=== PATIENT | male | born 1960 | race Caucasian/White ===

== ENCOUNTER 2018-06-21 17:48 | Inpatient (IN) | payer OTHER ==
--- NOTE | 2018-06-21 18:49 | PDOC ---
Rapid Medical Evaluation Medical Evaluation: Allergies Allergy/AdvReac Type Severity Reaction Status Date / Time No Known Allergies Allergy Verified 11/09/17 07:00 I have performed a brief in-person evaluation of this patient. The patient presents with a chief complaint of: hx of DM, HTN c/o RLQ abd pain x 2 weeks; went to PCP and had WBC 16K, was sent to ER for CT abd/pelvis; denies n/v/d, dysuria, hematuria Pertinent physical exam findings: In NAD, appears well, minimal TTP RLQ, no CVA tenderness I have ordered the following: Labs, UA The patient will proceed to the ED for further evaluation. 06/21/18 18:44
[2018-06-21] MEDS ORDERED: ACETAMINOPHEN 325 MG TABLET (FP) ONE (18:52)
[2018-06-21] MEDS ORDERED: ACETAMINOPHEN 325 MG TABLET (FP) PO ONE (18:53)
[2018-06-21 19:12] LABS: URINE APPEARANCE CLEAR; URINE BILIRUBIN NEGATIVE (<2.0 mg/dL); URINE COLOR LTYELLOW; URINE GLUCOSE (UA) NEGATIVE (NEGATIVE); URINE KETONE NEGATIVE (NEGATIVE); URINE LEUK ESTERASE NEGATIVE (NEGATIVE); URINE NITRITE NEGATIVE (NEGATIVE); URINE PROTEIN NEGATIVE (NEGATIVE); URINE UROBILINOGEN NEGATIVE mg/dL (0.2-1.0)
--- NOTE | 2018-06-21 20:51 | PDOC ---
*Physical Exam - Vital Signs Last Vital Signs Temp Pulse Resp BP Pulse Ox 100.8 F H 113 H 22 H 132/92 96 06/21/18 18:53 06/21/18 18:53 06/21/18 18:53 06/21/18 18:53 06/21/18 18:53 ED Treatment Course - LABORATORY CBC & Chemistry Diagram: 06/21/18 21:00 06/21/18 21:00 - ADDITIONAL ORDERS Additional order review: Laboratory Results 06/21/18 19:00 Urine Color Ltyellow Urine Appearance Clear Urine pH 5.0 Ur Specific [place] 1.015 Urine Protein Negative Urine Glucose (UA) Negative Urine Ketones Negative Urine Blood Negative Urine Nitrite Negative Urine Bilirubin Negative Urine Urobilinogen Negative Ur Leukocyte Esterase Negative Medical Decision Making - Medical Decision Making 06/21/18 20:51 Patient seen by the advanced practice provider under my direct supervision. Ancillary testing reviewed as necessary. I agree with plan as outlined by the advanced practice provider. *DC/Admit/Observation/Transfer Diagnosis at time of Disposition: Abdominal pain - Referrals Referrals: Jo-Ann Cotto MD [Primary Care Provider] - - Patient Instructions - Post Discharge Activity
[2018-06-21] MEDS ORDERED: SODIUM CHLORIDE 500 ML IV STA (20:53)
[2018-06-21] MEDS ORDERED: ACETAMINOPHEN 1000 MG/100 ML VIAL (NON FORMULARY) IVPB ONE (20:53)
--- NOTE | 2018-06-21 20:53 | PDOC ---
History of Present Illness - General Chief Complaint: SIRS, Suspected/Possible Stated Complaint: SICK Time Seen by Provider: 06/21/18 18:44 History Source: Patient - History of Present Illness Initial Comments: 06/21/18 20:48 57 year old lower abdominal pain and frequency of urination x 2 weeks. noted to have fever today in the ER> denies NVD, uri symptoms, headache, chest pain sent by PCP dr. bruce for evaluation. PMHX: diabetes, htn 06/22/18 01:27 Past History - Past Medical History Allergies/Adverse Reactions: Allergies Allergy/AdvReac Type Severity Reaction Status Date / Time No Known Allergies Allergy Verified 06/21/18 18:53 Home Medications: Ambulatory Orders Dulaglutide [Trulicity] 1.5 mg SQ WEEKLY 11/09/17 Lisinopril/Hydrochlorothiazide [Lisinopril-Hctz 20-25 mg Tab] 1 each PO DAILY COPD: No HTN: Yes - Suicide/Smoking/Psychosocial Hx Smoking History: Never smoked Have you smoked in the past 12 months: No Hx Alcohol Use: No Drug/Substance Use Hx: No Substance Use Type: None Review of Systems - Review of Systems Able to Perform ROS?: Yes Is the patient limited British proficient: No Constitutional: Yes: Fever Respiratory: No: Symptoms reported, See HPI, Cough, Orthopnea, Shortness of Breath, SOB with Exertion, SOB at Rest, Stridor, Wheezing, Productive cough, Hemoptysis, Other Cardiac (ROS): No: Symptoms Reported, See HPI, Chest Pain, Edema, Irregular Heart Rate, Lightheadedness, Palpitations, Syncope, Chest Tightness, Other ABD/GI: Yes: Abdominal cramping. No: Symptoms Reported, See HPI, Abdominal Distended, Abd. Pain w/ defecation, Blood Streaked Bowels, Constipated, Diarrhea , Difficulty Swallowing, Nausea, Poor Appetite, Poor Fluid Intake, Rectal Bleeding, Vomiting, Indigestion, Tarry Stools, Other : Yes: Frequency. No: Symptoms Reported, See HPI, Burning, Dysuria, Discharge , Flank Pain, Hematuria, Incontinence, Pain, Urgency, Testicular Mass, Testicular Swelling, Lesions, Testicular Pain, Other *Physical Exam - Vital Signs Last Vital Signs Temp Pulse Resp BP Pulse Ox 100.8 F H 113 H 22 H 132/92 96 06/21/18 18:53 06/21/18 18:53 06/21/18 18:53 06/21/18 18:53 06/21/18 18:53 - Physical Exam General Appearance: Yes: Appropriately Dressed Respiratory/Chest: positive: Lungs Clear, Normal Breath Sounds Cardiovascular: positive: Regular Rhythm, Regular Rate Gastrointestinal/Abdominal: positive: Normal Bowel Sounds, Tender (RLQ), Soft, Distended Musculoskeletal: positive: Normal Inspection Extremity: positive: Normal Capillary Refill, Normal Inspection, Normal Range of Motion Integumentary: positive: Normal Color, Dry, Warm Neurologic: positive: Fully Oriented, Alert Moderate Sedation - Procedure Monitoring Vital Signs: Procedure Monitoring Vital Signs Temperature 100.8 F H 06/21/18 18:53 Pulse Rate 113 H 06/21/18 18:53 Respiratory Rate 22 H 06/21/18 18:53 Blood Pressure 132/92 06/21/18 18:53 O2 Sat by Pulse Oximetry (%) 96 06/21/18 18:53 ED Treatment Course - LABORATORY CBC & Chemistry Diagram: 06/27/18 06:15 06/27/18 06:15 - ADDITIONAL ORDERS Additional order review: Laboratory Results 06/21/18 19:00 Urine Color Ltyellow Urine Appearance Clear Urine pH 5.0 Ur Specific [place] 1.015 Urine Protein Negative Urine Glucose (UA) Negative Urine Ketones Negative Urine Blood Negative Urine Nitrite Negative Urine Bilirubin Negative Urine Urobilinogen Negative Ur Leukocyte Esterase Negative Progress Note - Progress Note Progress Note: A: perforated appendicitis P: blood culture cbc cmp lactic acid ua IVF zosyn flagyl Surgery consult Medical Decision Making - Medical Decision Making 06/22/18 01:26 CTAP: Stomach:: Small sliding hiatal hernia. Bowel:: Marked inflammatory changes in the right lower quadrant without visualization of the appendix compatible with perforated appendicitis with associated moderate-sized pericolonic/periappendiceal fluid collection/abscess measuring approximately 9.2 x 2.4 cm. No evidence of small bowel obstruction or mass. Small fat-containing right inguinal hernia. 06/22/18 1:38 dr. mahsa rivero i spoke to Dr. bragg will see patient inpatient . need IR. patient admitted to the hospitalist service *DC/Admit/Observation/Transfer Diagnosis at time of Disposition: Perforated appendicitis Abdominal pain Qualifiers: Abdominal location: right lower quadrant Qualified Code(s): R10.31 - Right lower quadrant pain - Discharge Dispostion Decision to Admit order: Yes - Referrals - Patient Instructions - Post Discharge Activity
[2018-06-21] MEDS ORDERED: ACETAMINOPHEN INJECTION 100 ML IVPB ONE (21:01)
[2018-06-21 21:24] LABS: BASO % 0.8 % (0-2.0); EOS % 0.6 % (0-4.5); HEMATOCRIT 43.5 % (35.4-49); HEMOGLOBIN 14.9 GM/dL (11.7-16.9); LYMPH % 15.4 % (8-40); MCH 28.3 pg (25.7-33.7); MCHC 34.2 g/dl (32.0-35.9); MEAN CELL VOLUME 82.6 fl (80-96); MEAN PLT VOLUME 8.9 fl (7.5-11.1); MONO % 6.2 % (3.8-10.2); PLATELET COUNT 345 K/MM3 (134-434); RBC 5.26 M/mm3 (4.00-5.60); RDW 13.9 % (11.9-15.9); WHITE BLOOD COUNT 20.4 K/mm3 (4.0-10.0)
[2018-06-21 21:36] LABS: INR 1.13 (0.83-1.09); PROTHROMBIN TIME (PATIENT) 13.3 SEC (9.7-13.0)
[2018-06-21 21:45] LABS: ALBUMIN 3.5 g/dl (3.4-5.0); ALK PHOS 135 U/L (45-117); ANION GAP 7 MMOL/L (8-16); BILIRUBIN,TOTAL 0.6 mg/dL (0.2-1); BLOOD UREA NITROGEN 17 mg/dL (7-18); CALCIUM 8.9 mg/dL (8.5-10.1); CHLORIDE 101 mmol/L (98-107); CO2 28 mmol/L (21-32); CREATININE 0.9 mg/dL (0.55-1.3); GLUCOSE,RANDOM 119 mg/dL (74-106); POTASSIUM 3.7 mmol/L (3.5-5.1); SGOT/AST 16 U/L (15-37); SGPT/ALT 29 U/L (13-61); SODIUM 136 mmol/L (136-145); TOT PROT 7.8 g/dl (6.4-8.2)
[2018-06-21 21:54] LABS: PLATELET ESTIMATE ADEQUATE
[2018-06-22] MEDS ORDERED: PIPERACILLIN/TAZOB 4.5 GM 4.5 GM in DEXTROSE 5%-WATER 100 ML IVPB ONE (01:25)
[2018-06-22] MEDS ORDERED: SODIUM CHLORIDE 1,000 ML IV SCH (01:30)
[2018-06-22] MEDS ORDERED: PIPERACILLIN/TAZOB 4.5 GM 4.5 GM/100 ML BAG IVPB ONE (03:40)
--- NOTE | 2018-06-22 04:03 | HP ---
CHIEF COMPLAINT: Abdominal pain PCP: Dr. Cotto HISTORY OF PRESENT ILLNESS: Pt. is a 57 y.o. M presenting to the ED at the request of his PCP for abdominal pain. Pt. states that he has lower abdominal pain R>L for about 2 weeks intermittently. Pt. states that right now the pain doesn't feel so bad. Pt. denies any nausea, vomiting, fevers, chills, diarrhea, constipation, chest pain, shortness of breath, palpitations, lightheadedness, or dizziness right now. After discussion of CT results Pt. asking about second opinion. Pt. states that he rides his bike for 1 hour on the weekends and states he can climb 4 flights of stairs without feeling sort of breath. ER course was notable for: (1)CBC, CMP (2)Abdomen CT, EKG (3)Abx: zosyn , flagyl; IV Ofirmev Recent Travel: denies PAST MEDICAL HISTORY: HTN, DM PAST SURGICAL HISTORY: Denies Social History: Smoking: Denies Alcohol: Alot in the past but quit 10 years ago Drugs: Denies Family History: Mother has HTN Allergies No Known Allergies Allergy (Verified 06/21/18 18:53) HOME MEDICATIONS: Home Medications Medication Instructions Recorded Dulaglutide [Trulicity] 1.5 mg SQ WEEKLY 11/09/17 Lisinopril/Hydrochlorothiazide 1 each PO DAILY 06/21/18 [Lisinopril-Hctz 20-25 mg Tab] REVIEW OF SYSTEMS CONSTITUTIONAL: Absent: fever, chills, diaphoresis, generalized weakness, malaise, loss of appetite, weight change HEENT: Absent: rhinorrhea, nasal congestion, throat pain, throat swelling, difficulty swallowing, mouth swelling, ear pain, eye pain, visual changes CARDIOVASCULAR: Absent: chest pain, syncope, palpitations, irregular heart rate, lightheadedness , peripheral edema RESPIRATORY: Absent: cough, shortness of breath, dyspnea with exertion, orthopnea, wheezing, stridor, hemoptysis GASTROINTESTINAL:abdominal pain Absent: abdominal distension, nausea, vomiting, diarrhea, constipation, melena, hematochezia GENITOURINARY: Absent: dysuria, frequency, urgency, hesitancy, hematuria, flank pain, genital pain MUSCULOSKELETAL: Absent: myalgia, arthralgia, joint swelling, back pain, neck pain SKIN: Absent: rash, itching, pallor HEMATOLOGIC/IMMUNOLOGIC: Absent: easy bleeding, easy bruising, lymphadenopathy, frequent infections ENDOCRINE: Absent: unexplained weight gain, unexplained weight loss, heat intolerance, cold intolerance NEUROLOGIC: Absent: headache, focal weakness or paresthesias, dizziness, unsteady gait, seizure, mental status changes, bladder or bowel incontinence PSYCHIATRIC: Absent: anxiety, depression, suicidal or homicidal ideation, hallucinations. PHYSICAL EXAMINATION Vital Signs - 24 hr 06/21/18 18:53 Temperature 100.8 F H Pulse Rate 113 H Respiratory 22 H Rate Blood Pressure 132/92 O2 Sat by Pulse 96 Oximetry (%) GENERAL: AAox3 in Mild distress HEAD: NC/AT EYES: KRISTINE, EOMI , ENT: Moist mucous membranes. NECK: supple LUNGS: CTA B/L No wheezes, and no crackles. No accessory muscle use. HEART:RRR, No MRG ABDOMEN: Obese, soft , diffuse tenderness , RLQ tenderness , rebound tenderness MUSCULOSKELETAL: Normal range of motion at all joints. No bony deformities or tenderness. No CVA tenderness. UPPER EXTREMITIES: 2+ pulses, warm, well-perfused. No cyanosis. No clubbing. No peripheral edema. LOWER EXTREMITIES: 2+ pulses, warm, well-perfused. No calf tenderness. No peripheral edema. NEUROLOGICAL: Cranial nerves II-XII intact. Normal speech. PSYCHIATRIC: Cooperative. Laboratory Results - last 24 hr 06/21/18 06/21/18 06/21/18 19:00 21:00 21:00 WBC 20.4 H RBC 5.26 Hgb 14.9 Hct 43.5 MCV 82.6 MCH 28.3 MCHC 34.2 RDW 13.9 Plt Count 345 MPV 8.9 Absolute Neuts (auto) 15.7 H Neutrophils % 77.0 Neutrophils % (Manual) 67.0 Band Neutrophils % 8.0 Lymphocytes % 15.4 Lymphocytes % (Manual) 18.0 Monocytes % 6.2 Monocytes % (Manual) 2 L Eosinophils % 0.6 Eosinophils % (Manual) 1.0 Basophils % 0.8 Basophils % (Manual) 0.0 Nucleated RBC % 0 Platelet Estimate Adequate PT with INR INR PTT (Actin FS) Sodium 136 Potassium 3.7 Chloride 101 Carbon Dioxide 28 Anion Gap 7 L BUN 17 Creatinine 0.9 Creat Clearance w eGFR 86.98 Random Glucose 119 H Lactic Acid Calcium 8.9 Total Bilirubin 0.6 AST 16 ALT 29 Alkaline Phosphatase 135 H Total Protein 7.8 Albumin 3.5 Urine Color Ltyellow Urine Appearance Clear Urine pH 5.0 Ur Specific [place] 1.015 Urine Protein Negative Urine Glucose (UA) Negative Urine Ketones Negative Urine Blood Negative Urine Nitrite Negative Urine Bilirubin Negative Urine Urobilinogen Negative Ur Leukocyte Esterase Negative 06/21/18 06/21/18 21:00 21:00 WBC RBC Hgb Hct MCV MCH MCHC RDW Plt Count MPV Absolute Neuts (auto) Neutrophils % Neutrophils % (Manual) Band Neutrophils % Lymphocytes % Lymphocytes % (Manual) Monocytes % Monocytes % (Manual) Eosinophils % Eosinophils % (Manual) Basophils % Basophils % (Manual) Nucleated RBC % Platelet Estimate PT with INR 13.30 H INR 1.13 H PTT (Actin FS) 38.0 H Sodium Potassium Chloride Carbon Dioxide Anion Gap BUN Creatinine Creat Clearance w eGFR Random Glucose Lactic Acid 1.3 Calcium Total Bilirubin AST ALT Alkaline Phosphatase Total Protein Albumin Urine Color Urine Appearance Urine pH Ur Specific [place] Urine Protein Urine Glucose (UA) Urine Ketones Urine Blood Urine Nitrite Urine Bilirubin Urine Urobilinogen Ur Leukocyte Esterase CBC, BMP 06/21/18 21:00 06/21/18 21:00 06/22/18 CTAP: Stomach:: Small sliding hiatal hernia. Bowel:: Marked inflammatory changes in the right lower quadrant without visualization of the appendix compatible with perforated appendicitis with associated moderate-sized pericolonic/periappendiceal fluid collection/abscess measuring approximately 9.2 x 2.4 cm. No evidence of small bowel obstruction or mass. Small fat-containing right inguinal hernia. ASSESSMENT/PLAN: 57 year old amle with mhx of HTN , DM , presented with sever abdominal pain was found to have perforated appendicitis admitted for M/S for further evaluation and treatment. # Sepsis 2/2 Perforated appendicitis WBC 20, Temp 100.8 , RR:22 , source of infection, HR 113 NPO OR in AM Surgery consulted Dr Thrasher Type and screen, INR IVF Received IV Tylenol in ED to good effect C/w Flagyl and Zosyn EKG CXR no acute pathology CT abdomen/pelvic reviewed Tylenol for fever Zofran for nausea f/u BCx. and UCx. # HTN stable, resume home meds losartan/HCTZ #NIDDM hold oral agents BGM TIDAC ISS TIDAC # FEN NS @ 125 ml/hr Monitor electrolytes, replete as needed NPO #DVT Ppx. SCDs Only for now Lovenox 40mg SQ BID Post OP # Dispo Med surg # Full code Visit type - Emergency Visit Emergency Visit: Yes ED Registration Date: 06/22/18 Care time: The patient presented to the Emergency Department on the above date and was hospitalized for further evaluation of their emergent condition. - New Patient This patient is new to me today: Yes Date on this admission: 06/22/18 - Critical Care Critical Care patient: No
--- NOTE | 2018-06-22 04:07 | PN ---
Teaching Attending Note Name of Resident: Doc Carroll ATTENDING PHYSICIAN STATEMENT I saw and evaluated the patient. I reviewed the resident's note and discussed the case with the resident. I agree with the resident's findings and plan as documented. SUBJECTIVE: Patient is a 57 year old man with PMH of NIDDM, HTN, hyperlipidemia and morbid obesity presenting with right lower abdominal pain and frequency of urination for 2 weeks. Noted to have fever today in the ER. Denies nausea, vomiting, diarrhea, URI symptoms, headache, chest pain, hematuria or photophobia. Patient was sent by PCP Dr. Cotto for evaluation. OBJECTIVE: Alert Vital Signs Period Temp Pulse Resp BP Sys/Collazo Pulse Ox Last 24 Hr 100.8 F 113 22 132/92 96 HEENT: No Jaundice, eye redness or discharge, PERRLA, EOMI. Normocephalic, atraumatic. External ears are normal and hearing is grossly intact. No nasal discharge. Neck: Supple, nontender. No palpable adenopathy or thyromegaly. No JVD Chest: Good effort. Clear to auscultation and percussion. Heart: Regular. No S3, rub or murmur Abdomen: Not distended, soft, RLQ tenderness and no HSM. No rebound or guarding. Normal bowel sounds. Ext: Peripheral pulses intact. No leg edema. Skin: Warm and dry. No petechiae, rash or ecchymosis. Neuro: Alert. Oriented x3. CN 2-12 grossly intact. Sensation grossly intact in all four extremities and DTR are symmetric. Psych: Appropriate mood and affect. Good insight. Current Medications Generic Name Dose Route Start Last Admin Trade Name Feng PRN Reason Stop Dose Admin Sodium Chloride 1,000 mls @ 125 mls/hr 06/22/18 01:30 Normal Saline - IV [facility] Home Medications Medication Instructions Recorded Dulaglutide [Trulicity] 1.5 mg SQ WEEKLY 11/09/17 Lisinopril/Hydrochlorothiazide 1 each PO DAILY 06/21/18 [Lisinopril-Hctz 20-25 mg Tab] Abnormal Lab Results 06/21/18 06/21/18 06/21/18 21:00 21:00 21:00 WBC 20.4 H Absolute Neuts (auto) 15.7 H Monocytes % (Manual) 2 L PT with INR 13.30 H INR 1.13 H PTT (Actin FS) 38.0 H Anion Gap 7 L Random Glucose 119 H Alkaline Phosphatase 135 H ASSESSMENT AND PLAN: 1. Perforated appendix with abscess - CT abdomen/pelvis showed small sliding hiatal hernia in stomach; marked inflammatory changes in the right lower quadrant without visualization of the appendix compatible with perforated appendicitis with associated moderate-sized pericolonic/periappendiceal fluid collection/abscess measuring approximately 9.2 x 2.4 cm. No evidence of small bowel obstruction or mass. Small fat-containing right inguinal hernia. Surgery consulted - Dr. Thrasher. Patient being kept NPO, getting IV Zosyn and IV NS at 50 ml/hour. EKG shows NSR with no significant ST-T wave changes and CXR shows cardiomegaly with no acute infiltrate. 2. DM For now, we will hold the home diabetes drugs and implement sliding scale insulin regimen. Provide comprehensive diabetes care with patient teaching and counseling about the importance of adherence to prescribed diabetes regimen, euglycemia, eye care and foot care. 3. Morbid Obesity Counseled on the risks associated with obesity. Will provide patient all the necessary assistance, counseling and positive reinforcement to facilitate weight loss. Consult special weapons and tactics officer. 4. Hypertension - Restart outpatient antihypertensive drugs and revise regimen to ensure smooth [id number] good BP control. Nonpharmacologic measures to control hypertension like weight loss, salt restriction and exercise discussed. 5. DVT prophylaxis - Lovenox 40 mg SQ q 12 hours post op. SCDs, TEDs 6. Advance directives - Full code
[2018-06-22] MEDS ORDERED: ACETAMINOPHEN 1000 MG/100 ML VIAL (NON FORMULARY) IVPB PRN (06:22)
[2018-06-22] MEDS ORDERED: INSULIN SLIDING SCALE (NOVOLOG) 1 VIAL SQ SCH (07:00)
--- NOTE | 2018-06-22 07:14 | CONSULT ---
Consult Consult Specialty:: General Surgery Reason for Consultation:: ruptured appendicitis - History of Present Illness Chief Complaint: abdominal pain 2 weeks History of Present Illness: 57 yo male no significant PMH presenting to the ED at the request of his PCP for abdominal pain. Pt. states that he has lower abdominal pain R>L for about 2 weeks intermittently. Pt. states that right now the pain doesn't feel so bad. Pt. denies any nausea, vomiting, fevers, chills, diarrhea, constipation, chest pain, shortness of breath, palpitations, lightheadedness, or dizziness right now. After discussion of CT results Pt. asking about second opinion. Pt. states that he rides his bike for 1 hour on the weekends and states he can climb 4 flights of stairs without feeling sort of breath. we were called to assess. - History Source History Provided By: Patient, Medical Record Limitations to Obtaining History: No Limitations - Past Medical History Additional Medical History: obesity - Alcohol/Substance Use Hx Alcohol Use: No - Smoking History Smoking history: Never smoked Have you smoked in the past 12 months: No Home Medications - Allergies Allergies/Adverse Reactions: Allergies Allergy/AdvReac Type Severity Reaction Status Date / Time No Known Allergies Allergy Verified 06/21/18 18:53 - Home Medications Home Medications: Ambulatory Orders Dulaglutide [Trulicity] 1.5 mg SQ WEEKLY 11/09/17 Lisinopril/Hydrochlorothiazide [Lisinopril-Hctz 20-25 mg Tab] 1 each PO DAILY Review of Systems - Review of Systems Constitutional: denies: Chills, Fever Eyes: denies: Blind Spots, Recent Change in Vision HENT: denies: Difficult Swallowing, Ocular Prosthesis, Other Neck: denies: Decreased ROM, Lumps Cardiovascular: denies: Chest Pain, Palpitations Respiratory: denies: Cough, SOB Gastrointestinal: denies: Constipation, Diarrhea Genitourinary: denies: Discharge, Dysuria Musculoskeletal: denies: Muscle Pain, Muscle Weakness Integumentary: denies: Pallor, Rash Neurological: denies: Seizure, Syncope Endocrine: denies: Unexplained Weight Gain, Unexplained Weight Loss Hematology/Lymphatic: denies: Easily Bruised, Excessive Bleeding Psychiatric: denies: Anxiety, Depression Physical Exam Vital Signs: Vital Signs Temperature 98.1 F 06/22/18 05:34 Pulse Rate 91 H 06/22/18 05:34 Respiratory Rate 18 06/22/18 05:34 Blood Pressure 148/71 06/22/18 05:34 O2 Sat by Pulse Oximetry (%) 97 06/22/18 05:34 Constitutional: Yes: Well Nourished, No Distress, Calm, Obese Eyes: Yes: Conjunctiva Clear, EOM Intact HENT: Yes: Atraumatic, Normocephalic Neck: Yes: Supple, Trachea Midline Cardiovascular: Yes: Regular Rate and Rhythm, S1, S2 Respiratory: Yes: Regular, CTA Bilaterally. No: SOB Gastrointestinal: Yes: Normal Bowel Sounds, Soft, Abdomen, Obese, Tenderness ( deep palp of RLQ). No: Hepatomegaly, Hernia, Palpable Mass, Tenderness, Epigastrium, Tenderness, Rebound ...Rectal Exam: Yes: Sphincter Tone Normal. No: Mass Renal/: No: CVA Tenderness - Left, CVA Tenderness - Right Breast(s): Yes: Gynecomastia Musculoskeletal: No: Muscle Pain, Muscle Weakness Extremities: No: Cool, Cyanosis Edema: No Peripheral Pulses WNL: Yes Integumentary: No: Incision, Jaundice Neurological: Yes: Alert, Oriented Psychiatric: Yes: Alert, Oriented Labs: CBC, BMP 06/21/18 21:00 06/21/18 21:00 Imaging - Results Cat Scan: Report Reviewed, Image Reviewed (ruptured appendx withadjacent abscess ) Problem List - Problems (1) Perforated appendicitis Assessment/Plan: 57yo male with ruptured appendicitis 2 weeks ago. IR for Abscess Drainage was discussed with Dr. Da Silva and the abscess is intramural and may result in a fistula. Thus he should be managed with IV antibiotics alone as long as improving. No acute surgical intervention. NPO and IVF hydration IV antibiotics repeat labs, trend CBC adequate analgesia will follow peripherally Thank you for the opportunity to participate in the care of this patient. Code(s): K35.32 - ACUTE APPENDICITIS WITH PERF AND LOC PERITONITIS, W/O ABSCS (2) Abdominal pain in male Code(s): R10.9 - UNSPECIFIED ABDOMINAL PAIN (3) Obesity (BMI 35.0-39.9 without comorbidity) Code(s): E66.9 - OBESITY, UNSPECIFIED (4) Leukocytosis Code(s): D72.829 - ELEVATED WHITE BLOOD CELL COUNT, UNSPECIFIED Qualifiers: Leukocytosis type: bandemia Qualified Code(s): D72.825 - Bandemia
[2018-06-22 07:40] LABS: BASO % 0.6 % (0-2.0); EOS % 0.9 % (0-4.5); HEMATOCRIT 38.9 % (35.4-49); HEMOGLOBIN 13.3 GM/dL (11.7-16.9); LYMPH % 18.1 % (8-40); MCH 28.3 pg (25.7-33.7); MCHC 34.3 g/dl (32.0-35.9); MEAN CELL VOLUME 82.6 fl (80-96); MEAN PLT VOLUME 8.6 fl (7.5-11.1); MONO % 6.4 % (3.8-10.2); PLATELET COUNT 294 K/MM3 (134-434); RDW 13.8 % (11.9-15.9); WHITE BLOOD COUNT 13.7 K/mm3 (4.0-10.0)
[2018-06-22 08:09] LABS: INR 1.15 (0.83-1.09); PROTHROMBIN TIME (PATIENT) 13.6 SEC (9.7-13.0)
[2018-06-22 08:12] LABS: ALBUMIN 3.2 g/dl (3.4-5.0); ALK PHOS 118 U/L (45-117); ANION GAP 7 MMOL/L (8-16); BILIRUBIN,TOTAL 0.9 mg/dL (0.2-1); BLOOD UREA NITROGEN 15 mg/dL (7-18); CALCIUM 8.6 mg/dL (8.5-10.1); CHLORIDE 102 mmol/L (98-107); CO2 28 mmol/L (21-32); GLUCOSE,RANDOM 125 mg/dL (74-106); MAGNESIUM 2.1 mg/dL (1.8-2.4); PHOSPHOROUS 3.6 mg/dL (2.5-4.9); POTASSIUM 3.7 mmol/L (3.5-5.1); SGOT/AST 14 U/L (15-37); SGPT/ALT 24 U/L (13-61); SODIUM 137 mmol/L (136-145)
[2018-06-22] MEDS: SODIUM CHLORIDE 1,000 ML IV SCH (08:58)
--- NOTE | 2018-06-22 11:57 | EKG ---
Test Reason : Blood Pressure : / mmHG Vent. Rate : 086 BPM Atrial Rate : 086 BPM P-R Int : 176 ms QRS Dur : 102 ms QT Int : 360 ms P-R-T Axes : 052 051 042 degrees QTc Int : 430 ms NORMAL SINUS RHYTHM NONSPECIFIC T WAVE ABNORMALITY ABNORMAL ECG NO PREVIOUS ECGS AVAILABLE Confirmed by YAMILET HERMAN, BRANDON ([id number]) on 06/22/2018 11:56:56 AM Referred By: Confirmed By:BRANDON WOODARD MD
--- NOTE | 2018-06-22 16:34 | PN ---
Physical Exam: SUBJECTIVE: Patient seen and examined OBJECTIVE: Vital Signs Period Temp Pulse Resp BP Sys/Collazo Pulse Ox Last 24 Hr 98.1 F-100.8 F 64-113 18-22 128-148/60-92 96-97 GENERAL: The patient is awake, alert, and fully oriented, in no acute distress. HEAD: Normal with no signs of trauma. EYES: PERRL, extraocular movements intact, sclera anicteric, conjunctiva clear. No ptosis. ENT: Ears normal, nares patent, oropharynx clear without exudates, moist mucous membranes. NECK: Trachea midline, full range of motion, supple. LUNGS: Breath sounds equal, clear to auscultation bilaterally, no wheezes, no crackles, no accessory muscle use. HEART: Regular rate and rhythm, S1, S2 without murmur, rub or gallop. ABDOMEN: Soft, nontender, nondistended, normoactive bowel sounds, no guarding, no rebound, no hepatosplenomegaly, no masses. EXTREMITIES: 2+ pulses, warm, well-perfused, no edema. NEUROLOGICAL: Cranial nerves II through XII grossly intact. Normal speech, gait not observed. PSYCH: Normal mood, normal affect. SKIN: Warm, dry, normal turgor, no rashes or lesions noted Laboratory Results - last 24 hr 06/21/18 06/21/18 06/21/18 19:00 21:00 21:00 WBC 20.4 H RBC 5.26 Hgb 14.9 Hct 43.5 MCV 82.6 MCH 28.3 MCHC 34.2 RDW 13.9 Plt Count 345 MPV 8.9 Absolute Neuts (auto) 15.7 H Neutrophils % 77.0 Neutrophils % (Manual) 67.0 Band Neutrophils % 8.0 Lymphocytes % 15.4 Lymphocytes % (Manual) 18.0 Monocytes % 6.2 Monocytes % (Manual) 2 L Eosinophils % 0.6 Eosinophils % (Manual) 1.0 Basophils % 0.8 Basophils % (Manual) 0.0 Nucleated RBC % 0 Platelet Estimate Adequate PT with INR INR PTT (Actin FS) Sodium 136 Potassium 3.7 Chloride 101 Carbon Dioxide 28 Anion Gap 7 L BUN 17 Creatinine 0.9 Creat Clearance w eGFR 86.98 Random Glucose 119 H Lactic Acid Calcium 8.9 Phosphorus Magnesium Total Bilirubin 0.6 AST 16 ALT 29 Alkaline Phosphatase 135 H Total Protein 7.8 Albumin 3.5 Urine Color Ltyellow Urine Appearance Clear Urine pH 5.0 Ur Specific [place] 1.015 Urine Protein Negative Urine Glucose (UA) Negative Urine Ketones Negative Urine Blood Negative Urine Nitrite Negative Urine Bilirubin Negative Urine Urobilinogen Negative Ur Leukocyte Esterase Negative Blood Type Antibody Screen 06/21/18 06/21/18 06/22/18 21:00 21:00 07:15 WBC 13.7 H RBC 4.70 Hgb 13.3 Hct 38.9 MCV 82.6 MCH 28.3 MCHC 34.3 RDW 13.8 Plt Count 294 MPV 8.6 Absolute Neuts (auto) 10.2 H Neutrophils % 74.0 Neutrophils % (Manual) Band Neutrophils % Lymphocytes % 18.1 Lymphocytes % (Manual) Monocytes % 6.4 Monocytes % (Manual) Eosinophils % 0.9 Eosinophils % (Manual) Basophils % 0.6 Basophils % (Manual) Nucleated RBC % 0 Platelet Estimate PT with INR 13.30 H INR 1.13 H PTT (Actin FS) 38.0 H Sodium Potassium Chloride Carbon Dioxide Anion Gap BUN Creatinine Creat Clearance w eGFR Random Glucose Lactic Acid 1.3 Calcium Phosphorus Magnesium Total Bilirubin AST ALT Alkaline Phosphatase Total Protein Albumin Urine Color Urine Appearance Urine pH Ur Specific [place] Urine Protein Urine Glucose (UA) Urine Ketones Urine Blood Urine Nitrite Urine Bilirubin Urine Urobilinogen Ur Leukocyte Esterase Blood Type Antibody Screen 06/22/18 06/22/18 06/22/18 07:15 07:15 07:15 WBC RBC Hgb Hct MCV MCH MCHC RDW Plt Count MPV Absolute Neuts (auto) Neutrophils % Neutrophils % (Manual) Band Neutrophils % Lymphocytes % Lymphocytes % (Manual) Monocytes % Monocytes % (Manual) Eosinophils % Eosinophils % (Manual) Basophils % Basophils % (Manual) Nucleated RBC % Platelet Estimate PT with INR 13.60 H INR 1.15 H PTT (Actin FS) Sodium 137 Potassium 3.7 Chloride 102 Carbon Dioxide 28 Anion Gap 7 L BUN 15 Creatinine 1.0 Creat Clearance w eGFR 77.02 Random Glucose 125 H Lactic Acid Calcium 8.6 Phosphorus 3.6 Magnesium 2.1 Total Bilirubin 0.9 AST 14 L ALT 24 Alkaline Phosphatase 118 H Total Protein 7.0 Albumin 3.2 L Urine Color Urine Appearance Urine pH Ur Specific [place] Urine Protein Urine Glucose (UA) Urine Ketones Urine Blood Urine Nitrite Urine Bilirubin Urine Urobilinogen Ur Leukocyte Esterase Blood Type O POSITIVE Antibody Screen Negative 06/22/18 10:11 WBC RBC Hgb Hct MCV MCH MCHC RDW Plt Count MPV Absolute Neuts (auto) Neutrophils % Neutrophils % (Manual) Band Neutrophils % Lymphocytes % Lymphocytes % (Manual) Monocytes % Monocytes % (Manual) Eosinophils % Eosinophils % (Manual) Basophils % Basophils % (Manual) Nucleated RBC % Platelet Estimate PT with INR INR PTT (Actin FS) Sodium Potassium Chloride Carbon Dioxide Anion Gap BUN Creatinine Creat Clearance w eGFR Random Glucose Lactic Acid Calcium Phosphorus Magnesium Total Bilirubin AST ALT Alkaline Phosphatase Total Protein Albumin Urine Color Urine Appearance Urine pH Ur Specific [place] Urine Protein Urine Glucose (UA) Urine Ketones Urine Blood Urine Nitrite Urine Bilirubin Urine Urobilinogen Ur Leukocyte Esterase Blood Type O POSITIVE Antibody Screen Active Medications Generic Name Dose Route Start Last Admin Trade Name Freq PRN Reason Stop Dose Admin Acetaminophen 1,000 mg 06/22/18 06:22 Ofirmev Injection - IVPB Q6H PRN PAIN OR FEVER Sodium Chloride 1,000 mls @ 75 mls/hr 06/22/18 05:11 06/22/18 08:58 Normal Saline - IV 75 mls/hr ASDIR SHIMA Administration Levofloxacin 500 mg in 100 mls @ 100 mls/hr 06/23/18 10:00 Levaquin 500 Mg Premixed Ivpb - IVPB DAILY SHIMA Protocol Metronidazole 500 mg in 100 mls @ 100 mls/hr 06/22/18 09:00 06/22/18 16:02 Flagyl 500mg Premixed Ivpb - IVPB 100 mls/hr Q6H-IV SHIMA Administration CT Abdomen: There is extensive inflammation within the right lower quadrant. The appendix is not definitely identified but appears to be involved in this process. There is an associated air and fluid collection measuring 5.8 x 5.7 x 5.7 cm. It is difficult to separate the collection from the base of the cecum, as well as the terminal ileum. There is a smaller fluid collection noted within the midline measuring 3.7 x 1.7 x 2.1 cm. This is also consistent with a small abscess. Inflammatory changes involve the sigmoid colon, as well as. The most likely etiology of this process is acute appendicitis with perforation. Clinical correlation and follow-up is now recommended. ASSESSMENT/PLAN: This is a 57 year old obese male with a history of HTN, NIDDM, who presented with two weeks of abdominal pain; found to have perforated appendicitis with abscess. #appendicitis with perforation and abscess: -seen by surgery need IV antibiotic for five days -on IV metronidazole day 1 and levaquin -plan for removal in two monther as per surgery -seen by IR; not a candidate for drain #NIDDM -bgm -insulin ss achs #HTN hx; -currently stable not on antihypertensive Diet; low sodium/diabetic VTE; heparin sq Disposition: IV antibiotics med surg Visit type - Emergency Visit Emergency Visit: Yes ED Registration Date: 06/22/18 Care time: The patient presented to the Emergency Department on the above date and was hospitalized for further evaluation of their emergent condition. - New Patient This patient is new to me today: Yes Date on this admission: 06/22/18 - Critical Care Critical Care patient: No
--- NOTE | 2018-06-22 17:18 | PN ---
Teaching Attending Note Name of Resident: Anne Marie Munoz ATTENDING PHYSICIAN STATEMENT I saw and evaluated the patient. I reviewed the resident's note and discussed the case with the resident. I agree with the resident's findings and plan as documented. SUBJECTIVE: Mr Matias says he is feeling much better. Says he is not having pain. Denies cp, sob, n/v. OBJECTIVE: Last Vital Signs Temp Pulse Resp BP Pulse Ox 37.1 C 64 20 143/60 97 06/22/18 15:52 06/22/18 15:52 06/22/18 09:00 06/22/18 15:52 06/22/18 05:34 Gen: nad Pulm: ctab w/o w/r/r CV: rrr w/o m/r/g Abd: hypoactive bs, s/nd, slight TTP in RLQ Ext: no c/c/e CBC, BMP 06/22/18 07:15 06/22/18 07:15 ASSESSMENT AND PLAN: Problem List - Problems (1) Perforated appendicitis Assessment/Plan: -case d/w general surgery and IR -no need for surgical intervention or drainage -improving with IV antibiotics alone -continue IV levaquin and flagyl, will need 5 days of IV antibiotics -start on diet Code(s): K35.32 - ACUTE APPENDICITIS WITH PERF AND LOC PERITONITIS, W/O ABSCS (2) HTN (hypertension) Assessment/Plan: -monitor -restart lisinopril and HCTZ when elevates Code(s): I10 - ESSENTIAL (PRIMARY) HYPERTENSION (3) Diabetes Assessment/Plan: -diabetic diet and SSI Code(s): E11.9 - TYPE 2 DIABETES MELLITUS WITHOUT COMPLICATIONS
[2018-06-22] MEDS ORDERED: INSULIN (NOVOLOG) ASPART 100 UNITS/ML 10ML VIAL ONE (21:31)
[2018-06-22] MEDS: INSULIN SLIDING SCALE (NOVOLOG) 1 VIAL SQ SCH (22:58)
[2018-06-23] MEDS: INSULIN SLIDING SCALE (NOVOLOG) 1 VIAL SQ SCH ×4 (06:45→21:07)
[2018-06-23] MEDS: SODIUM CHLORIDE 1,000 ML IV SCH (06:46)
[2018-06-23 08:53] LABS: BASO % 0.5 % (0-2.0); EOS % 1.9 % (0-4.5); HEMATOCRIT 39.8 % (35.4-49); HEMOGLOBIN 13.3 GM/dL (11.7-16.9); LYMPH % 19.3 % (8-40); MCH 27.9 pg (25.7-33.7); MCHC 33.5 g/dl (32.0-35.9); MEAN CELL VOLUME 83.5 fl (80-96); MEAN PLT VOLUME 8.8 fl (7.5-11.1); MONO % 6.7 % (3.8-10.2); NEUT % 71.6 % (42.8-82.8); PLATELET COUNT 291 K/MM3 (134-434); RBC 4.77 M/mm3 (4.00-5.60); WHITE BLOOD COUNT 11.7 K/mm3 (4.0-10.0)
[2018-06-23 09:19] LABS: ANION GAP 7 MMOL/L (8-16); BLOOD UREA NITROGEN 16 mg/dL (7-18); CALCIUM 8.5 mg/dL (8.5-10.1); CHLORIDE 107 mmol/L (98-107); CO2 26 mmol/L (21-32); CREATININE 0.8 mg/dL (0.55-1.3); GLUCOSE,RANDOM 117 mg/dL (74-106); MAGNESIUM 2.6 mg/dL (1.8-2.4); PHOSPHOROUS 2.9 mg/dL (2.5-4.9); POTASSIUM 4.1 mmol/L (3.5-5.1); SODIUM 140 mmol/L (136-145)
[2018-06-23] MEDS ORDERED: PIPERACILLIN/TAZOB 4.5 GM 4.5 GM in DEXTROSE 5%-WATER 100 ML IVPB ONE (09:34)
[2018-06-23] MEDS ORDERED: FLUCONAZOLE 400 MG/NS 200 ML IVPB ONE (09:36)
[2018-06-23] MEDS ORDERED: PIPERACILLIN/TAZOBACTAM 4.5 GM VIAL IVPB ONE (10:58)
[2018-06-23] MEDS ORDERED: DEXTROSE 5%-WATER 100 ML IVPB ONE (10:58)
--- NOTE | 2018-06-23 11:45 | CON.ID ---
Consult Consult Specialty:: infectious diseases Referred by:: dr omer Reason for Consultation:: apeendicitis,perforated abscess, fungameia - History of Present Illness Chief Complaint: abd pain History of Present Illness: 57 yo obese male no significant PMH presenting to the ED at the request of his PCP for abdominal pain. Pt. states that he has lower abdominal pain R>L for about 2 weeks intermittently. patient initially waited and started feeling better,then his pain came back again and he went to his pcp and was send to the hospital Pt. denies any nausea, vomiting, fevers, chills, diarrhea, constipation, chest pain, shortness of breath, palpitations, lightheadedness, or dizziness right now. patient was worked up in the hospital and seen by surgery and was advised conservative mgmt with abx. patients blood cx then came back positive for fungal infection currently patient is tolerating liquids with minimal discomfort in the rlq - History Source History Provided By: Patient Limitations to Obtaining History: No Limitations - Past Medical History Additional Medical History: obesity - Alcohol/Substance Use Hx Alcohol Use: No - Smoking History Smoking history: Never smoked Have you smoked in the past 12 months: No Home Medications - Allergies Allergies/Adverse Reactions: Allergies Allergy/AdvReac Type Severity Reaction Status Date / Time No Known Allergies Allergy Verified 06/21/18 18:53 - Home Medications Home Medications: Ambulatory Orders Dulaglutide [Trulicity] 1.5 mg SQ WEEKLY 11/09/17 Lisinopril/Hydrochlorothiazide [Lisinopril-Hctz 20-25 mg Tab] 1 each PO DAILY Review of Systems - Review of Systems Constitutional: reports: No Symptoms Eyes: reports: No Symptoms HENT: reports: No Symptoms Neck: reports: No Symptoms Cardiovascular: reports: No Symptoms Respiratory: reports: No Symptoms Gastrointestinal: reports: Abdominal Pain (rlq) Genitourinary: reports: No Symptoms Musculoskeletal: reports: No Symptoms Integumentary: reports: No Symptoms Neurological: reports: No Symptoms Endocrine: reports: No Symptoms Hematology/Lymphatic: reports: No Symptoms Psychiatric: reports: No Symptoms Physical Exam Vital Signs: Vital Signs Temperature 98.8 F 06/23/18 10:00 Pulse Rate 91 H 06/23/18 10:00 Respiratory Rate 20 06/23/18 10:00 Blood Pressure 151/92 06/23/18 10:00 O2 Sat by Pulse Oximetry (%) 97 06/22/18 05:34 Constitutional: Yes: Well Nourished, Calm, Mild Distress Eyes: Yes: Conjunctiva Clear Cardiovascular: Yes: Regular Rate and Rhythm Respiratory: Yes: Regular, CTA Bilaterally Gastrointestinal: Yes: Soft, Hypoactive Bowel Sounds, Tenderness (rlq) Musculoskeletal: Yes: WNL Extremities: Yes: WNL Neurological: Yes: Alert, Oriented Psychiatric: Yes: Alert, Oriented Labs: CBC, BMP 06/23/18 07:35 06/23/18 07:35 Imaging - Results Chest X-ray: Report Reviewed, Image Reviewed Cat Scan: Report Reviewed, Image Reviewed Assessment/Plan Problem List - Problems (1) Perforated appendicitis Code(s): K35.32 - ACUTE APPENDICITIS WITH PERF AND LOC PERITONITIS, W/O ABSCS (2) Abdominal pain in male Code(s): R10.9 - UNSPECIFIED ABDOMINAL PAIN (3) Obesity (BMI 35.0-39.9 without comorbidity) Code(s): E66.9 - OBESITY, UNSPECIFIED (4) Leukocytosis Code(s): D72.829 - ELEVATED WHITE BLOOD CELL COUNT, UNSPECIFIED Qualifiers: Leukocytosis type: bandemia Qualified Code(s): D72.825 - Bandemia 5 fungameia plan will continue zosyn on the patient will add iv fluconozole will send repeat blood cx await for identification of the organism close watch wbc trending down
--- NOTE | 2018-06-23 15:21 | PN ---
Teaching Attending Note Name of Resident: Anne Marie Munoz ATTENDING PHYSICIAN STATEMENT I saw and evaluated the patient. I reviewed the resident's note and discussed the case with the resident. I agree with the resident's findings and plan as documented. SUBJECTIVE: Mr Matias is without complaint and saying he is feeling much better today. Denies cp, sob, n/v, abdominal pain, or any other concern OBJECTIVE: Last Vital Signs Temp Pulse Resp BP Pulse Ox 37.1 C 91 H 20 151/92 97 06/23/18 10:00 06/23/18 10:00 06/23/18 10:00 06/23/18 10:00 06/22/18 05:34 Gen: nad, obese Pulm: ctab w/o w/r/r CV: rrr w/o m/r/g Abd: +bs, s/nt/nd Ext: no c/c/e CBC, BMP 06/23/18 07:35 06/23/18 07:35 ASSESSMENT AND PLAN: (1) Perforated appendicitis Assessment/Plan: -04/08 blood cultures growing yeast like organism -however patient looks much improved -case d/w ID, change IV antibiotics to zosyn -start IV diflucan -resent blood cultures tomorrow -continue diet Code(s): K35.32 - ACUTE APPENDICITIS WITH PERF AND LOC PERITONITIS, W/O ABSCS (2) HTN (hypertension) Assessment/Plan: -stop IVF -restart lisinopril if blood pressure remains elevated Code(s): I10 - ESSENTIAL (PRIMARY) HYPERTENSION (3) Diabetes Assessment/Plan: -diabetic diet and SSI Code(s): E11.9 - TYPE 2 DIABETES MELLITUS WITHOUT COMPLICATIONS Problem List - Problems (1) Perforated appendicitis Code(s): K35.32 - ACUTE APPENDICITIS WITH PERF AND LOC PERITONITIS, W/O ABSCS (2) HTN (hypertension) Code(s): I10 - ESSENTIAL (PRIMARY) HYPERTENSION (3) Diabetes Code(s): E11.9 - TYPE 2 DIABETES MELLITUS WITHOUT COMPLICATIONS
[2018-06-23] MEDS ORDERED: DEXTROSE 5%-WATER - 50 ML IVPB ONE (17:29)
[2018-06-23] MEDS ORDERED: PIPERACILLIN/TAZOBACTAM 3.375 GM VIAL IVPB ONE (17:29)
[2018-06-23] MEDS: PIPERACILLIN/TAZOB 3.375 GM 3.375 GM in DEXTROSE 5%-WATER - 50 ML IVPB SCH (17:34)
--- NOTE | 2018-06-23 20:32 | PN ---
Physical Exam: SUBJECTIVE: Patient seen and examined OBJECTIVE: Vital Signs Period Temp Pulse Resp BP Sys/Collazo Pulse Ox Last 24 Hr 97.6 F-98.8 F 75-91 18-20 129-151/83-92 GENERAL: The patient is awake, alert, and fully oriented, in no acute distress. HEAD: Normal with no signs of trauma. EYES: PERRL, extraocular movements intact, sclera anicteric, conjunctiva clear. No ptosis. ENT: Ears normal, nares patent, oropharynx clear without exudates, moist mucous membranes. NECK: Trachea midline, full range of motion, supple. LUNGS: Breath sounds equal, clear to auscultation bilaterally, no wheezes, no crackles, no accessory muscle use. HEART: Regular rate and rhythm, S1, S2 without murmur, rub or gallop. ABDOMEN: Soft, nontender, nondistended, normoactive bowel sounds, no guarding, no rebound, no hepatosplenomegaly, no masses. EXTREMITIES: 2+ pulses, warm, well-perfused, no edema. NEUROLOGICAL: Cranial nerves II through XII grossly intact. Normal speech, gait not observed. PSYCH: Normal mood, normal affect. SKIN: Warm, dry, normal turgor, no rashes or lesions noted Laboratory Results - last 24 hr 06/22/18 06/23/18 06/23/18 21:59 05:42 07:35 WBC 11.7 H RBC 4.77 Hgb 13.3 Hct 39.8 MCV 83.5 MCH 27.9 MCHC 33.5 RDW 14.0 Plt Count 291 MPV 8.8 Absolute Neuts (auto) 8.4 H Neutrophils % 71.6 Lymphocytes % 19.3 Monocytes % 6.7 Eosinophils % 1.9 D Basophils % 0.5 Nucleated RBC % 0 Sodium Potassium Chloride Carbon Dioxide Anion Gap BUN Creatinine Creat Clearance w eGFR POC Glucometer 129 115 Random Glucose Calcium Phosphorus Magnesium 06/23/18 06/23/18 06/23/18 07:35 11:37 16:53 WBC RBC Hgb Hct MCV MCH MCHC RDW Plt Count MPV Absolute Neuts (auto) Neutrophils % Lymphocytes % Monocytes % Eosinophils % Basophils % Nucleated RBC % Sodium 140 Potassium 4.1 Chloride 107 Carbon Dioxide 26 Anion Gap 7 L BUN 16 Creatinine 0.8 Creat Clearance w eGFR 99.64 POC Glucometer 179 90 Random Glucose 117 H Calcium 8.5 Phosphorus 2.9 Magnesium 2.6 H Active Medications Generic Name Dose Route Start Last Admin Trade Name Freq PRN Reason Stop Dose Admin Acetaminophen 1,000 mg 06/22/18 06:22 Ofirmev Injection - IVPB Q6H PRN PAIN OR FEVER Fluconazole 200 mls @ 200 mls/hr 06/24/18 10:00 Diflucan 400 Mg/Ns Premixed Ivpb - IVPB DAILY SHIMA Piperacillin Sod/Tazobactam 50 mls @ 100 mls/hr 06/23/18 18:00 06/23/18 17:34 Sod 3.375 gm/ Dextrose IVPB 100 mls/hr Q8H-IV SHIMA Administration Protocol Insulin Aspart 1 vial 06/22/18 22:00 06/23/18 16:54 Novolog Vial Sliding Scale - SQ Not Given ACHS SHIMA Protocol CT Abdomen: There is extensive inflammation within the right lower quadrant. The appendix is not definitely identified but appears to be involved in this process. There is an associated air and fluid collection measuring 5.8 x 5.7 x 5.7 cm. It is difficult to separate the collection from the base of the cecum, as well as the terminal ileum. There is a smaller fluid collection noted within the midline measuring 3.7 x 1.7 x 2.1 cm. This is also consistent with a small abscess. Inflammatory changes involve the sigmoid colon, as well as. The most likely etiology of this process is acute appendicitis with perforation. Clinical correlation and follow-up is now recommended. ASSESSMENT/PLAN: This is a 57 year old obese male with a history of HTN, NIDDM, who presented with two weeks of abdominal pain; found to have perforated appendicitis with abscess. #appendicitis with perforation and abscess: - IV antibiotic for now -ID following switched IV antibiotics to zosyn -bld culture + with yeast; started on IV fluconazole -plan for removal in two months as per surgery -seen by IR; not a candidate for drain #NIDDM -bgm -insulin ss achs #HTN hx; -currently stable not on antihypertensive Diet; low sodium/diabetic VTE; heparin sq Disposition: IV antibiotics med surg Visit type - Emergency Visit Emergency Visit: Yes ED Registration Date: 06/22/18 Care time: The patient presented to the Emergency Department on the above date and was hospitalized for further evaluation of their emergent condition. - New Patient This patient is new to me today: No - Critical Care Critical Care patient: No
[2018-06-24] MEDS ORDERED: PIPERACILLIN/TAZOBACTAM 3.375 GM VIAL IVPB ONE ×3 (01:47→18:12)
[2018-06-24] MEDS ORDERED: DEXTROSE 5%-WATER - 50 ML IVPB ONE ×3 (01:48→18:12)
[2018-06-24] MEDS: PIPERACILLIN/TAZOB 3.375 GM 3.375 GM in DEXTROSE 5%-WATER - 50 ML IVPB SCH ×3 (02:09→18:28)
[2018-06-24] MEDS: INSULIN SLIDING SCALE (NOVOLOG) 1 VIAL SQ SCH ×4 (06:21→22:51)
[2018-06-24 08:45] LABS: BASO % 0.6 % (0-2.0); EOS % 2.3 % (0-4.5); HEMATOCRIT 37.7 % (35.4-49); HEMOGLOBIN 12.9 GM/dL (11.7-16.9); LYMPH % 22.2 % (8-40); MCH 28.3 pg (25.7-33.7); MCHC 34.1 g/dl (32.0-35.9); MEAN PLT VOLUME 8.8 fl (7.5-11.1); MONO % 7.4 % (3.8-10.2); NEUT % 67.5 % (42.8-82.8); PLATELET COUNT 283 K/MM3 (134-434); RBC 4.55 M/mm3 (4.00-5.60); RDW 13.6 % (11.9-15.9); WHITE BLOOD COUNT 9.3 K/mm3 (4.0-10.0)
[2018-06-24 09:22] LABS: ANION GAP 8 MMOL/L (8-16); BLOOD UREA NITROGEN 12 mg/dL (7-18); CHLORIDE 107 mmol/L (98-107); CO2 24 mmol/L (21-32); CREATININE 0.9 mg/dL (0.55-1.3); GLUCOSE,RANDOM 96 mg/dL (74-106); MAGNESIUM 2.4 mg/dL (1.8-2.4); PHOSPHOROUS 3.1 mg/dL (2.5-4.9); SODIUM 139 mmol/L (136-145)
[2018-06-24] MEDS: FLUCONAZOLE 400 MG/NS 200 ML IVPB SCH (10:59)
--- NOTE | 2018-06-24 13:02 | PN ---
Progress Note, Physician History of Present Illness: patient stable no complaints - Current Medication List Current Medications: Active Medications Acetaminophen (Ofirmev Injection -) 1,000 mg IVPB Q6H PRN PRN Reason: PAIN OR FEVER Fluconazole (Diflucan 400 Mg/Ns Premixed Ivpb -) 200 mls @ 200 mls/hr IVPB DAILY SHIMA Last Admin: 06/24/18 10:59 Dose: 200 mls/hr Piperacillin Sod/Tazobactam (Sod 3.375 gm/ Dextrose) 50 mls @ 100 mls/hr IVPB Q8H-IV SHIMA; Protocol Last Admin: 06/24/18 10:59 Dose: 100 mls/hr Insulin Aspart (Novolog Vial Sliding Scale -) 1 vial SQ ACHS SHIMA; Protocol Last Admin: 06/24/18 11:53 Dose: Not Given - Objective Vital Signs: Vital Signs Temperature 97.8 F 06/24/18 12:03 Pulse Rate 73 06/24/18 12:03 Respiratory Rate 18 06/24/18 12:03 Blood Pressure 159/93 06/24/18 12:03 O2 Sat by Pulse Oximetry (%) 97 06/22/18 05:34 Constitutional: Yes: No Distress, Calm, Obese Cardiovascular: Yes: Regular Rate and Rhythm Respiratory: Yes: Regular, CTA Bilaterally Gastrointestinal: Yes: Normal Bowel Sounds, Soft Musculoskeletal: Yes: WNL Extremities: Yes: WNL Neurological: Yes: Alert, Oriented Psychiatric: Yes: Alert, Oriented Labs: CBC, BMP 06/24/18 07:16 06/24/18 07:16 INR, PTT INR 1.15 (0.83-1.09) H 06/22/18 07:15 Assessment/Plan Problem List - Problems (1) Perforated appendicitis Code(s): K35.32 - ACUTE APPENDICITIS WITH PERF AND LOC PERITONITIS, W/O ABSCS (2) Abdominal pain in male Code(s): R10.9 - UNSPECIFIED ABDOMINAL PAIN (3) Obesity (BMI 35.0-39.9 without comorbidity) Code(s): E66.9 - OBESITY, UNSPECIFIED (4) Leukocytosis Code(s): D72.829 - ELEVATED WHITE BLOOD CELL COUNT, UNSPECIFIED Qualifiers: Leukocytosis type: bandemia Qualified Code(s): D72.825 - Bandemia 5 fungameia plan tomorrow will switch to oral abx continue iv antifungal will need it for at least 2 weeks post cx negative awaiting for identification of the organism cx showing 2 different yeast species
[2018-06-24] MEDS ORDERED: PATIENT'S OWN MEDICATION (NON-FORMULARY) (Lisinopril/Hydrochlorothiazide [Lisinopril-Hctz PO SCH (14:00)
[2018-06-24] MEDS: LISINOPRIL 20 MG TABLET (FP) PO SCH (14:24)
[2018-06-24] MEDS: HYDROCHLOROTHIAZIDE 25 MG TABLET (FP) PO SCH (14:24)
--- NOTE | 2018-06-24 16:36 | PN ---
Physical Exam: SUBJECTIVE: Patient seen and examined; no acute events; afebrile; wbc normal; BLD cx +yeast OBJECTIVE: Vital Signs Period Temp Pulse Resp BP Sys/Collazo Pulse Ox Last 24 Hr 97.8 F-99 F 73-80 18-20 153-160/86-94 96 GENERAL: The patient is awake, alert, and fully oriented, in no acute distress. Obese LUNGS: Breath sounds equal, clear to auscultation bilaterally, no wheezes, no crackles, no accessory muscle use. HEART: Regular rate and rhythm, S1, S2 without murmur, rub or gallop. ABDOMEN: very large, globose; distended non tender EXTREMITIES: 2+ pulses, warm, well-perfused, no edema. NEUROLOGICAL: Cranial nerves II through XII grossly intact. Normal speech, gait not observed. Laboratory Results - last 24 hr 06/23/18 06/23/18 06/24/18 16:53 21:02 07:16 WBC 9.3 RBC 4.55 Hgb 12.9 Hct 37.7 MCV 83.0 MCH 28.3 MCHC 34.1 RDW 13.6 Plt Count 283 MPV 8.8 Absolute Neuts (auto) 6.3 Neutrophils % 67.5 Lymphocytes % 22.2 Monocytes % 7.4 Eosinophils % 2.3 Basophils % 0.6 Nucleated RBC % 0 Sodium Potassium Chloride Carbon Dioxide Anion Gap BUN Creatinine Creat Clearance w eGFR POC Glucometer 90 90 Random Glucose Calcium Phosphorus Magnesium 06/24/18 06/24/18 07:16 11:14 WBC RBC Hgb Hct MCV MCH MCHC RDW Plt Count MPV Absolute Neuts (auto) Neutrophils % Lymphocytes % Monocytes % Eosinophils % Basophils % Nucleated RBC % Sodium 139 Potassium 4.0 Chloride 107 Carbon Dioxide 24 Anion Gap 8 BUN 12 Creatinine 0.9 Creat Clearance w eGFR 86.98 POC Glucometer 117 Random Glucose 96 Calcium 8.0 L Phosphorus 3.1 Magnesium 2.4 Active Medications Generic Name Dose Route Start Last Admin Trade Name Freq PRN Reason Stop Dose Admin Acetaminophen 1,000 mg 06/22/18 06:22 Ofirmev Injection - IVPB Q6H PRN PAIN OR FEVER Hydrochlorothiazide 25 mg 06/24/18 14:15 06/24/18 14:24 Hctz - PO 25 mg DAILY SHIMA Administration Fluconazole 200 mls @ 200 mls/hr 06/24/18 10:00 06/24/18 10:59 Diflucan 400 Mg/Ns Premixed Ivpb - IVPB 200 mls/hr DAILY SHIMA Administration Piperacillin Sod/Tazobactam 50 mls @ 100 mls/hr 06/23/18 18:00 06/24/18 10:59 Sod 3.375 gm/ Dextrose IVPB 100 mls/hr Q8H-IV SHIMA Administration Protocol Insulin Aspart 1 vial 06/22/18 22:00 06/24/18 11:53 Novolog Vial Sliding Scale - SQ Not Given ACHS SHIMA Protocol Lisinopril 20 mg 06/24/18 14:15 06/24/18 14:24 Prinivil PO 20 mg DAILY SHIMA Administration Microbiology 06/21/18 21:00 Blood - Peripheral Venous Blood Culture - Preliminary Yeast Like Organism Yeast Like Organism#2 06/21/18 21:00 Blood - Peripheral Venous Blood Culture - Preliminary NO GROWTH OBTAINED AFTER 48 HOURS, INCUBATION TO CONTINUE FOR 3 DAYS. 06/21/18 19:00 Urine - Urine Clean Catch Urine Culture - Final NO GROWTH OBTAINED ASSESSMENT/PLAN: This is a 57 year old obese male with a history of HTN, NIDDM, who presented with two weeks of abdominal pain; found to have perforated appendicitis with abscess. #appendicitis with perforation and abscess: -ID following switched IV antibiotics to zosyn day #2 -bld culture as above on IV fluconazole day #2 -plan for removal in two months as per surgery -seen by IR; not a candidate for drain #NIDDM -bgm -insulin ss achs #HTN hx; -currently stable ' htcz/lis Diet; low sodium/diabetic VTE; heparin sq Disposition: IV antibiotics med surg Visit type - Emergency Visit Emergency Visit: Yes ED Registration Date: 06/22/18 Care time: The patient presented to the Emergency Department on the above date and was hospitalized for further evaluation of their emergent condition. - New Patient This patient is new to me today: No - Critical Care Critical Care patient: No
--- NOTE | 2018-06-24 17:01 | PN ---
Teaching Attending Note Name of Resident: Anne Marie Munoz ATTENDING PHYSICIAN STATEMENT I saw and evaluated the patient. I reviewed the resident's note and discussed the case with the resident. I agree with the resident's findings and plan as documented. SUBJECTIVE: Mr Matias is without complaint. Denies cp, sob, n/v. OBJECTIVE: Last Vital Signs Temp Pulse Resp BP Pulse Ox 36.6 C 74 18 159/94 96 06/24/18 13:48 06/24/18 13:48 06/24/18 12:03 06/24/18 13:48 06/24/18 09:00 Gen: nad, obese Pulm: ctab w/o w/r/r CV: rrr w/o m/r/g Abd: +bs, s/nt/nd Ext: no c/c/e CBC, BMP 06/24/18 07:16 06/24/18 07:16 ASSESSMENT AND PLAN: (1) Perforated appendicitis Assessment/Plan: -much improved -continue zosyn -continue diflucan -ID following -follow up repeat blood cultures Code(s): K35.32 - ACUTE APPENDICITIS WITH PERF AND LOC PERITONITIS, W/O ABSCS (2) HTN (hypertension) Assessment/Plan: -restart lisinopril and HCTZ Code(s): I10 - ESSENTIAL (PRIMARY) HYPERTENSION (3) Diabetes Assessment/Plan: -diabetic diet and SSI Code(s): E11.9 - TYPE 2 DIABETES MELLITUS WITHOUT COMPLICATIONS Problem List - Problems (1) Perforated appendicitis Code(s): K35.32 - ACUTE APPENDICITIS WITH PERF AND LOC PERITONITIS, W/O ABSCS (2) HTN (hypertension) Code(s): I10 - ESSENTIAL (PRIMARY) HYPERTENSION (3) Diabetes Code(s): E11.9 - TYPE 2 DIABETES MELLITUS WITHOUT COMPLICATIONS
[2018-06-25] MEDS ORDERED: PIPERACILLIN/TAZOBACTAM 3.375 GM VIAL IVPB ONE ×3 (01:23→17:49)
[2018-06-25] MEDS ORDERED: DEXTROSE 5%-WATER - 50 ML IVPB ONE ×3 (01:24→17:49)
[2018-06-25] MEDS: PIPERACILLIN/TAZOB 3.375 GM 3.375 GM in DEXTROSE 5%-WATER - 50 ML IVPB SCH ×3 (01:46→17:52)
[2018-06-25] MEDS: INSULIN SLIDING SCALE (NOVOLOG) 1 VIAL SQ SCH ×4 (05:59→22:26)
[2018-06-25 06:50] LABS: BASO % 0.5 % (0-2.0); EOS % 1.7 % (0-4.5); HEMOGLOBIN 14.9 GM/dL (11.7-16.9); MCH 28.6 pg (25.7-33.7); MCHC 33.9 g/dl (32.0-35.9); MEAN CELL VOLUME 84.4 fl (80-96); MEAN PLT VOLUME 9.2 fl (7.5-11.1); MONO % 6.2 % (3.8-10.2); NEUT % 67.6 % (42.8-82.8); PLATELET COUNT 331 K/MM3 (134-434); RBC 5.22 M/mm3 (4.00-5.60); RDW 13.9 % (11.9-15.9); WHITE BLOOD COUNT 12.1 K/mm3 (4.0-10.0)
[2018-06-25 07:18] LABS: ANION GAP 7 MMOL/L (8-16); BLOOD UREA NITROGEN 13 mg/dL (7-18); CHLORIDE 106 mmol/L (98-107); CO2 27 mmol/L (21-32); GLUCOSE,RANDOM 101 mg/dL (74-106); MAGNESIUM 2.6 mg/dL (1.8-2.4); POTASSIUM 4.4 mmol/L (3.5-5.1); SODIUM 140 mmol/L (136-145)
[2018-06-25] MEDS: LISINOPRIL 20 MG TABLET (FP) PO SCH (09:10)
[2018-06-25] MEDS: HYDROCHLOROTHIAZIDE 25 MG TABLET (FP) PO SCH (09:10)
[2018-06-25] MEDS ORDERED: LISINOPRIL 20 MG TABLET (FP) PO SCH (10:00)
[2018-06-25] MEDS ORDERED: HYDROCHLOROTHIAZIDE 25 MG TABLET (FP) PO SCH (10:00)
[2018-06-25] MEDS ORDERED: PT OWN MED DRAWER 7, Y5N ONE ×2 (10:22→22:01)
[2018-06-25] MEDS: FLUCONAZOLE 400 MG/NS 200 ML IVPB SCH (10:57)
--- NOTE | 2018-06-25 11:36 | PN ---
Progress Note, Physician Chief Complaint: Mr Matias is without complaint today. No cp, sob, n/v, abdominal pain. - Current Medication List Current Medications: Active Medications Acetaminophen (Ofirmev Injection -) 1,000 mg IVPB Q6H PRN PRN Reason: PAIN OR FEVER Hydrochlorothiazide (Hctz -) 25 mg PO DAILY [facility] Last Admin: 06/25/18 09:10 Dose: 25 mg Fluconazole (Diflucan 400 Mg/Ns Premixed Ivpb -) 200 mls @ 200 mls/hr IVPB DAILY [facility] Last Admin: 06/25/18 10:57 Dose: 200 mls/hr Piperacillin Sod/Tazobactam (Sod 3.375 gm/ Dextrose) 50 mls @ 100 mls/hr IVPB Q8H-IV [facility]; Protocol Last Admin: 06/25/18 10:24 Dose: 100 mls/hr Insulin Aspart (Novolog Vial Sliding Scale -) 1 vial SQ ACHS [facility]; Protocol Last Admin: 06/25/18 05:59 Dose: Not Given Lisinopril (Prinivil) 20 mg PO DAILY [facility] Last Admin: 06/25/18 09:10 Dose: 20 mg - Objective Vital Signs: Vital Signs Temperature 37.2 C 06/25/18 09:00 Pulse Rate 93 H 06/25/18 09:00 Respiratory Rate 20 06/25/18 09:00 Blood Pressure 152/93 06/25/18 09:00 O2 Sat by Pulse Oximetry (%) 96 06/24/18 21:00 Constitutional: Yes: No Distress, Calm, Obese Cardiovascular: Yes: Regular Rate and Rhythm. No: Gallop, Murmur, Rub Respiratory: Yes: Regular, CTA Bilaterally. No: Rales, Rhonchi, Wheezes Gastrointestinal: Yes: Normal Bowel Sounds, Soft. No: Distention, Tenderness Extremities: Yes: WNL Edema: No Labs: CBC, BMP 06/25/18 06:00 06/25/18 06:00 INR, PTT INR 1.15 (0.83-1.09) H 06/22/18 07:15 Problem List - Problems (1) Perforated appendicitis Code(s): K35.32 - ACUTE APPENDICITIS WITH PERF AND LOC PERITONITIS, W/O ABSCS (2) HTN (hypertension) Code(s): I10 - ESSENTIAL (PRIMARY) HYPERTENSION (3) Diabetes Code(s): E11.9 - TYPE 2 DIABETES MELLITUS WITHOUT COMPLICATIONS Assessment/Plan (1) Perforated appendicitis Assessment/Plan: -awaiting finalization of yeast culture -repeat blood cultures negative -continue zosyn and fluconazole per ID recommendations Code(s): K35.32 - ACUTE APPENDICITIS WITH PERF AND LOC PERITONITIS, W/O ABSCS (2) HTN (hypertension) Assessment/Plan: -lisinopril and HCTZ restarted -may need further increase -monitor today Code(s): I10 - ESSENTIAL (PRIMARY) HYPERTENSION (3) Diabetes Assessment/Plan: -diabetic diet and SSI Code(s): E11.9 - TYPE 2 DIABETES MELLITUS WITHOUT COMPLICATIONS
[2018-06-25 15:28] VITALS: BMI 42.3
--- NOTE | 2018-06-25 15:34 | PN ---
Progress Note, Physician History of Present Illness: stable no issues tip of nose redness no fever tolerating diet - Current Medication List Current Medications: Active Medications Acetaminophen (Ofirmev Injection -) 1,000 mg IVPB Q6H PRN PRN Reason: PAIN OR FEVER Hydrochlorothiazide (Hctz -) 25 mg PO DAILY [facility] Last Admin: 06/25/18 09:10 Dose: 25 mg Fluconazole (Diflucan 400 Mg/Ns Premixed Ivpb -) 200 mls @ 200 mls/hr IVPB DAILY [facility] Last Admin: 06/25/18 10:57 Dose: 200 mls/hr Piperacillin Sod/Tazobactam (Sod 3.375 gm/ Dextrose) 50 mls @ 100 mls/hr IVPB Q8H-IV [facility]; Protocol Last Admin: 06/25/18 10:24 Dose: 100 mls/hr Insulin Aspart (Novolog Vial Sliding Scale -) 1 vial SQ ACHS [facility]; Protocol Last Admin: 06/25/18 11:30 Dose: Not Given Lisinopril (Prinivil) 20 mg PO DAILY [facility] Last Admin: 06/25/18 09:10 Dose: 20 mg - Objective Vital Signs: Vital Signs Temperature 97.9 F 06/25/18 14:00 Pulse Rate 81 06/25/18 14:00 Respiratory Rate 21 H 06/25/18 14:00 Blood Pressure 157/85 06/25/18 14:00 O2 Sat by Pulse Oximetry (%) 96 06/24/18 21:00 Constitutional: Yes: No Distress, Calm Cardiovascular: Yes: Regular Rate and Rhythm Respiratory: Yes: Regular, CTA Bilaterally Gastrointestinal: Yes: Normal Bowel Sounds, Soft Musculoskeletal: Yes: WNL Extremities: Yes: WNL Neurological: Yes: Alert, Oriented Psychiatric: Yes: Alert, Oriented Labs: CBC, BMP 06/25/18 06:00 06/25/18 06:00 INR, PTT INR 1.15 (0.83-1.09) H 06/22/18 07:15 Assessment/Plan Problem List - Problems (1) Perforated appendicitis Code(s): K35.32 - ACUTE APPENDICITIS WITH PERF AND LOC PERITONITIS, W/O ABSCS (2) Abdominal pain in male Code(s): R10.9 - UNSPECIFIED ABDOMINAL PAIN (3) Obesity (BMI 35.0-39.9 without comorbidity) Code(s): E66.9 - OBESITY, UNSPECIFIED (4) Leukocytosis Code(s): D72.829 - ELEVATED WHITE BLOOD CELL COUNT, UNSPECIFIED Qualifiers: Leukocytosis type: bandemia Qualified Code(s): D72.825 - Bandemia 5 fungameia plan continue iv abx wbc has increased close watch monitor wbc rest as per the team
[2018-06-26] MEDS ORDERED: PIPERACILLIN/TAZOBACTAM 3.375 GM VIAL IVPB ONE ×3 (00:36→17:08)
[2018-06-26] MEDS ORDERED: DEXTROSE 5%-WATER - 50 ML IVPB ONE ×3 (00:36→17:09)
[2018-06-26] MEDS: PIPERACILLIN/TAZOB 3.375 GM 3.375 GM in DEXTROSE 5%-WATER - 50 ML IVPB SCH ×3 (02:02→17:17)
[2018-06-26] MEDS: INSULIN SLIDING SCALE (NOVOLOG) 1 VIAL SQ SCH ×4 (06:08→21:49)
[2018-06-26 08:39] LABS: BASO % 0.8 % (0-2.0); EOS % 0.9 % (0-4.5); HEMATOCRIT 43.6 % (35.4-49); HEMOGLOBIN 14.8 GM/dL (11.7-16.9); MCH 28.1 pg (25.7-33.7); MEAN CELL VOLUME 82.7 fl (80-96); MEAN PLT VOLUME 8.7 fl (7.5-11.1); NEUT % 74.3 % (42.8-82.8); PLATELET COUNT 342 K/MM3 (134-434); RBC 5.27 M/mm3 (4.00-5.60); RDW 14.2 % (11.9-15.9); WHITE BLOOD COUNT 14.7 K/mm3 (4.0-10.0)
[2018-06-26 08:51] LABS: ANION GAP 7 MMOL/L (8-16); BLOOD UREA NITROGEN 15 mg/dL (7-18); CALCIUM 9.1 mg/dL (8.5-10.1); CHLORIDE 102 mmol/L (98-107); CO2 25 mmol/L (21-32); CREATININE 0.9 mg/dL (0.55-1.3); GLUCOSE,RANDOM 123 mg/dL (74-106); MAGNESIUM 2.4 mg/dL (1.8-2.4); PHOSPHOROUS 4.5 mg/dL (2.5-4.9); POTASSIUM 4.4 mmol/L (3.5-5.1); SODIUM 135 mmol/L (136-145)
[2018-06-26] MEDS: HYDROCHLOROTHIAZIDE 25 MG TABLET (FP) PO SCH (09:27)
[2018-06-26] MEDS: LISINOPRIL 20 MG TABLET (FP) PO SCH (09:27)
[2018-06-26] MEDS: FLUCONAZOLE 400 MG/NS 200 ML IVPB SCH (10:13)
--- NOTE | 2018-06-26 13:29 | PN ---
Progress Note, Physician History of Present Illness: patient stable no complaints - Current Medication List Current Medications: Active Medications Hydrochlorothiazide (Hctz -) 25 mg PO DAILY [facility] Last Admin: 06/26/18 09:27 Dose: 25 mg Fluconazole (Diflucan 400 Mg/Ns Premixed Ivpb -) 200 mls @ 200 mls/hr IVPB DAILY [facility] Last Admin: 06/26/18 10:13 Dose: 200 mls/hr Piperacillin Sod/Tazobactam (Sod 3.375 gm/ Dextrose) 50 mls @ 100 mls/hr IVPB Q8H-IV [facility]; Protocol Last Admin: 06/26/18 09:27 Dose: 100 mls/hr Insulin Aspart (Novolog Vial Sliding Scale -) 1 vial SQ ACHS [facility]; Protocol Last Admin: 06/26/18 11:40 Dose: Not Given Lisinopril (Prinivil) 20 mg PO DAILY [facility] Last Admin: 06/26/18 09:27 Dose: 20 mg - Objective Vital Signs: Vital Signs Temperature 98.3 F 06/26/18 09:00 Pulse Rate 94 H 06/26/18 09:00 Respiratory Rate 20 06/26/18 09:00 Blood Pressure 146/91 06/26/18 09:00 O2 Sat by Pulse Oximetry (%) 96 06/24/18 21:00 Constitutional: Yes: No Distress, Calm, Obese Cardiovascular: Yes: Regular Rate and Rhythm Respiratory: Yes: Regular, CTA Bilaterally Gastrointestinal: Yes: Normal Bowel Sounds, Soft Musculoskeletal: Yes: WNL Extremities: Yes: WNL Neurological: Yes: Alert, Oriented Psychiatric: Yes: Alert, Oriented Labs: CBC, BMP 06/26/18 07:30 06/26/18 07:30 INR, PTT INR 1.15 (0.83-1.09) H 06/22/18 07:15 Assessment/Plan Problem List - Problems (1) Perforated appendicitis Code(s): K35.32 - ACUTE APPENDICITIS WITH PERF AND LOC PERITONITIS, W/O ABSCS (2) Abdominal pain in male Code(s): R10.9 - UNSPECIFIED ABDOMINAL PAIN (3) Obesity (BMI 35.0-39.9 without comorbidity) Code(s): E66.9 - OBESITY, UNSPECIFIED (4) Leukocytosis Code(s): D72.829 - ELEVATED WHITE BLOOD CELL COUNT, UNSPECIFIED Qualifiers: Leukocytosis type: bandemia Qualified Code(s): D72.825 - Bandemia 5 fungameia plan continue iv abx wbc has jumped up if patients wbc does not decrease tomorrow then ct scan and will decide on the finding of ct scan continue antifungal
--- NOTE | 2018-06-26 16:48 | PN ---
Progress Note, Physician Chief Complaint: Mr Matias says he is feeling good. Denies cp, sob, n/v, pain, or any other concern. - Current Medication List Current Medications: Active Medications Hydrochlorothiazide (Hctz -) 25 mg PO DAILY [facility] Last Admin: 06/26/18 09:27 Dose: 25 mg Fluconazole (Diflucan 400 Mg/Ns Premixed Ivpb -) 200 mls @ 200 mls/hr IVPB DAILY [facility] Last Admin: 06/26/18 10:13 Dose: 200 mls/hr Piperacillin Sod/Tazobactam (Sod 3.375 gm/ Dextrose) 50 mls @ 100 mls/hr IVPB Q8H-IV [facility]; Protocol Last Admin: 06/26/18 09:27 Dose: 100 mls/hr Insulin Aspart (Novolog Vial Sliding Scale -) 1 vial SQ ACHS [facility]; Protocol Last Admin: 06/26/18 11:40 Dose: Not Given Lisinopril (Prinivil) 20 mg PO DAILY [facility] Last Admin: 06/26/18 09:27 Dose: 20 mg - Objective Vital Signs: Vital Signs Temperature 36.8 C 06/26/18 09:00 Pulse Rate 94 H 06/26/18 09:00 Respiratory Rate 20 06/26/18 09:00 Blood Pressure 146/91 06/26/18 09:00 O2 Sat by Pulse Oximetry (%) 96 06/24/18 21:00 Constitutional: Yes: No Distress, Calm, Obese Cardiovascular: Yes: Regular Rate and Rhythm. No: Gallop, Murmur, Rub Respiratory: Yes: Regular, CTA Bilaterally. No: Rales, Rhonchi, Wheezes Gastrointestinal: Yes: Normal Bowel Sounds, Soft. No: Distention, Tenderness Extremities: Yes: WNL Edema: No Labs: CBC, BMP 06/26/18 07:30 06/26/18 07:30 INR, PTT INR 1.15 (0.83-1.09) H 06/22/18 07:15 Problem List - Problems (1) Perforated appendicitis Code(s): K35.32 - ACUTE APPENDICITIS WITH PERF AND LOC PERITONITIS, W/O ABSCS (2) HTN (hypertension) Code(s): I10 - ESSENTIAL (PRIMARY) HYPERTENSION (3) Diabetes Code(s): E11.9 - TYPE 2 DIABETES MELLITUS WITHOUT COMPLICATIONS Assessment/Plan (1) Perforated appendicitis Assessment/Plan: -awaiting finalization of yeast culture -repeat blood cultures negative -continue zosyn and fluconazole per ID recommendations -with increasing leukocytosis -if continues to increase, repeat CT scan of abdomen Code(s): K35.32 - ACUTE APPENDICITIS WITH PERF AND LOC PERITONITIS, W/O ABSCS (2) HTN (hypertension) Assessment/Plan: -continue lisinopril and HCTZ Code(s): I10 - ESSENTIAL (PRIMARY) HYPERTENSION (3) Diabetes Assessment/Plan: -diabetic diet and SSI Code(s): E11.9 - TYPE 2 DIABETES MELLITUS WITHOUT COMPLICATIONS
[2018-06-27] MEDS ORDERED: PIPERACILLIN/TAZOBACTAM 3.375 GM VIAL IVPB ONE ×3 (00:59→17:54)
[2018-06-27] MEDS ORDERED: DEXTROSE 5%-WATER - 50 ML IVPB ONE ×3 (00:59→17:54)
[2018-06-27] MEDS: PIPERACILLIN/TAZOB 3.375 GM 3.375 GM in DEXTROSE 5%-WATER - 50 ML IVPB SCH ×3 (02:00→17:56)
[2018-06-27] MEDS: INSULIN SLIDING SCALE (NOVOLOG) 1 VIAL SQ SCH ×4 (06:17→22:05)
[2018-06-27 07:20] LABS: BASO % 0.5 % (0-2.0); HEMATOCRIT 40.2 % (35.4-49); HEMOGLOBIN 13.8 GM/dL (11.7-16.9); LYMPH % 18.2 % (8-40); MCH 28.8 pg (25.7-33.7); MCHC 34.4 g/dl (32.0-35.9); MEAN CELL VOLUME 83.6 fl (80-96); MEAN PLT VOLUME 9.1 fl (7.5-11.1); MONO % 6.3 % (3.8-10.2); PLATELET COUNT 303 K/MM3 (134-434); RBC 4.81 M/mm3 (4.00-5.60); RDW 14.2 % (11.9-15.9); WHITE BLOOD COUNT 14.3 K/mm3 (4.0-10.0)
[2018-06-27 07:31] LABS: ANION GAP 9 MMOL/L (8-16); BLOOD UREA NITROGEN 14 mg/dL (7-18); CALCIUM 8.2 mg/dL (8.5-10.1); CHLORIDE 102 mmol/L (98-107); CO2 26 mmol/L (21-32); GLUCOSE,RANDOM 107 mg/dL (74-106); MAGNESIUM 1.8 mg/dL (1.8-2.4); PHOSPHOROUS 3.7 mg/dL (2.5-4.9); POTASSIUM 4.1 mmol/L (3.5-5.1); SODIUM 137 mmol/L (136-145)
[2018-06-27] MEDS: FLUCONAZOLE 400 MG/NS 200 ML IVPB SCH (09:24)
[2018-06-27] MEDS: HYDROCHLOROTHIAZIDE 25 MG TABLET (FP) PO SCH (09:34)
[2018-06-27] MEDS: LISINOPRIL 20 MG TABLET (FP) PO SCH (09:34)
--- NOTE | 2018-06-27 12:35 | PN ---
Progress Note, Physician History of Present Illness: wbc still high patient comfortable still identification of yeast pending - Current Medication List Current Medications: Active Medications Hydrochlorothiazide (Hctz -) 25 mg PO DAILY [facility] Last Admin: 06/27/18 09:34 Dose: 25 mg Fluconazole (Diflucan 400 Mg/Ns Premixed Ivpb -) 200 mls @ 200 mls/hr IVPB DAILY [facility] Last Admin: 06/27/18 09:24 Dose: 200 mls/hr Piperacillin Sod/Tazobactam (Sod 3.375 gm/ Dextrose) 50 mls @ 100 mls/hr IVPB Q8H-IV [facility]; Protocol Last Admin: 06/27/18 09:34 Dose: 100 mls/hr Insulin Aspart (Novolog Vial Sliding Scale -) 1 vial SQ ACHS [facility]; Protocol Last Admin: 06/27/18 11:43 Dose: Not Given Lisinopril (Prinivil) 20 mg PO DAILY [facility] Last Admin: 06/27/18 09:34 Dose: 20 mg - Objective Vital Signs: Vital Signs Temperature 97.9 F 06/27/18 09:08 Pulse Rate 87 06/27/18 09:08 Respiratory Rate 20 06/27/18 09:08 Blood Pressure 136/85 06/27/18 09:08 O2 Sat by Pulse Oximetry (%) 96 06/24/18 21:00 Constitutional: Yes: No Distress, Calm Cardiovascular: Yes: Regular Rate and Rhythm Respiratory: Yes: Regular, CTA Bilaterally Gastrointestinal: Yes: Normal Bowel Sounds, Soft Musculoskeletal: Yes: WNL Extremities: Yes: WNL Neurological: Yes: Alert, Oriented Psychiatric: Yes: Alert, Oriented Labs: CBC, BMP 06/27/18 06:15 06/27/18 06:15 INR, PTT INR 1.15 (0.83-1.09) H 06/22/18 07:15 Assessment/Plan Problem List - Problems (1) Perforated appendicitis Code(s): K35.32 - ACUTE APPENDICITIS WITH PERF AND LOC PERITONITIS, W/O ABSCS (2) Abdominal pain in male Code(s): R10.9 - UNSPECIFIED ABDOMINAL PAIN (3) Obesity (BMI 35.0-39.9 without comorbidity) Code(s): E66.9 - OBESITY, UNSPECIFIED (4) Leukocytosis Code(s): D72.829 - ELEVATED WHITE BLOOD CELL COUNT, UNSPECIFIED Qualifiers: Leukocytosis type: bandemia Qualified Code(s): D72.825 - Bandemia 5 fungameia plan continue iv abx antifungal get ct scan of abd rest as per the team
--- NOTE | 2018-06-27 16:10 | PN ---
Physical Exam: SUBJECTIVE: Patient seen and examined; no complaints; no pain; afebrile; wbc still 14; micro pending yeast organism OBJECTIVE: Vital Signs Period Temp Pulse Resp BP Sys/Collazo Pulse Ox Last 24 Hr 97.7 F-99.0 F 78-97 20-20 124-137/74-85 GENERAL: The patient is awake, alert, and fully oriented, in no acute distress, obese LUNGS: Breath sounds equal, clear to auscultation bilaterally, no wheezes, no crackles, no accessory muscle use. HEART: Regular rate and rhythm, S1, S2 without murmur, rub or gallop. ABDOMEN:globose; Soft, nontender, nondistended, normoactive bowel sounds, no guarding, no rebound, no hepatosplenomegaly, no masses. EXTREMITIES: 2+ pulses, warm, well-perfused, no edema. NEUROLOGICAL: Cranial nerves II through XII grossly intact. Normal speech, gait not observed. PSYCH: Normal mood, normal affect. SKIN: Warm, dry, normal turgor, no rashes or lesions noted Laboratory Results - last 24 hr 06/26/18 06/26/18 06/27/18 16:55 21:48 05:15 WBC RBC Hgb Hct MCV MCH MCHC RDW Plt Count MPV Absolute Neuts (auto) Neutrophils % Lymphocytes % Monocytes % Eosinophils % Basophils % Nucleated RBC % Sodium Potassium Chloride Carbon Dioxide Anion Gap BUN Creatinine Creat Clearance w eGFR POC Glucometer 106 122 106 Random Glucose Calcium Phosphorus Magnesium 06/27/18 06/27/18 06/27/18 06:15 06:15 11:30 WBC 14.3 H RBC 4.81 Hgb 13.8 Hct 40.2 MCV 83.6 MCH 28.8 MCHC 34.4 RDW 14.2 Plt Count 303 MPV 9.1 Absolute Neuts (auto) 10.6 H Neutrophils % 74.0 Lymphocytes % 18.2 Monocytes % 6.3 Eosinophils % 1.0 Basophils % 0.5 Nucleated RBC % 0 Sodium 137 Potassium 4.1 Chloride 102 Carbon Dioxide 26 Anion Gap 9 BUN 14 Creatinine 1.0 Creat Clearance w eGFR 77.02 POC Glucometer 130 Random Glucose 107 H Calcium 8.2 L Phosphorus 3.7 Magnesium 1.8 Active Medications Generic Name Dose Route Start Last Admin Trade Name Freq PRN Reason Stop Dose Admin Hydrochlorothiazide 25 mg 06/24/18 14:15 03/25/19 09:34 Hctz - PO 25 mg DAILY [facility] Administration Fluconazole 200 mls @ 200 mls/hr 06/24/18 10:00 06/27/18 09:24 Diflucan 400 Mg/Ns Premixed Ivpb - IVPB 200 mls/hr DAILY [facility] Administration Piperacillin Sod/Tazobactam 50 mls @ 100 mls/hr 06/23/18 18:00 06/27/18 09:34 Sod 3.375 gm/ Dextrose IVPB 100 mls/hr Q8H-IV [facility] Administration Protocol Insulin Aspart 1 vial 06/22/18 22:00 06/27/18 11:43 Novolog Vial Sliding Scale - SQ Not Given ACHS [facility] Protocol Lisinopril 20 mg 06/24/18 14:15 06/27/18 09:34 Prinivil PO 20 mg DAILY [facility] Administration Microbiology 06/21/18 21:00 Blood - Peripheral Venous Yeast/Fungus Identification - Preliminary Pending Organism 06/24/18 07:16 Blood - Peripheral Venous Blood Culture - Preliminary NO GROWTH OBTAINED AFTER 72 HOURS, INCUBATION TO CONTINUE FOR 2 DAYS. 06/24/18 07:16 Blood - Peripheral Venous Blood Culture - Preliminary NO GROWTH OBTAINED AFTER 72 HOURS, INCUBATION TO CONTINUE FOR 2 DAYS. 06/21/18 21:00 Blood - Peripheral Venous Blood Culture - Final NO GROWTH AFTER 5 DAYS INCUBATION 06/21/18 21:00 Blood - Peripheral Venous Blood Culture - Final Yeast Like Organism Yeast Like Organism#2 06/21/18 19:00 Urine - Urine Clean Catch Urine Culture - Final NO GROWTH OBTAINED ASSESSMENT/PLAN: This is a 57 year old obese male with a history of HTN, NIDDM, who presented with two weeks of abdominal pain; found to have perforated appendicitis with abscess. #appendicitis with perforation and abscess; with leucocytosis -CT abdomen/pelvis; pending -bld culture as above on IV fluconazole ; yeast organism pending -plan for removal in two months as per surgery -seen by IR; not a candidate for drain #NIDDM -bgm -insulin ss achs #HTN hx; -currently stable ' htcz/lis Diet; low sodium/diabetic VTE; heparin sq Disposition: IV antibiotics med surg Visit type - Emergency Visit Emergency Visit: Yes ED Registration Date: 06/22/18 Care time: The patient presented to the Emergency Department on the above date and was hospitalized for further evaluation of their emergent condition. - New Patient This patient is new to me today: No - Critical Care Critical Care patient: No
--- NOTE | 2018-06-27 17:45 | PN ---
Teaching Attending Note Name of Resident: Anne Marie Munoz ATTENDING PHYSICIAN STATEMENT I saw and evaluated the patient. I reviewed the resident's note and discussed the case with the resident. I agree with the resident's findings and plan as documented. SUBJECTIVE: Mr Matias is without complaint. Denies chest pain, shortness of breath, nausea/vomiting OBJECTIVE: Last Vital Signs Temp Pulse Resp BP Pulse Ox 36.6 C 78 20 135/85 96 06/27/18 15:01 06/27/18 15:01 06/27/18 09:08 06/27/18 15:01 06/24/18 21:00 Gen: nad, obese Pulm: ctab w/o w/r/r CV: rrr w/o m/r/g Abd: +bs, s/nt/nd Ext: no c/c/e CBC, BMP 06/27/18 06:15 06/27/18 06:15 ASSESSMENT AND PLAN: (1) Perforated appendicitis Assessment/Plan: -case d/w Dr Wiley -will obtain CT scan today -if better/unchanged, PICC line tomorrow and 10 days of diflucan -if worsening, d/w surgery Code(s): K35.32 - ACUTE APPENDICITIS WITH PERF AND LOC PERITONITIS, W/O ABSCS (2) HTN (hypertension) Assessment/Plan: -continue lisinopril and HCTZ Code(s): I10 - ESSENTIAL (PRIMARY) HYPERTENSION (3) Diabetes Assessment/Plan: -diabetic diet and SSI Code(s): E11.9 - TYPE 2 DIABETES MELLITUS WITHOUT COMPLICATIONS Problem List - Problems (1) Perforated appendicitis Code(s): K35.32 - ACUTE APPENDICITIS WITH PERF AND LOC PERITONITIS, W/O ABSCS (2) HTN (hypertension) Code(s): I10 - ESSENTIAL (PRIMARY) HYPERTENSION (3) Diabetes Code(s): E11.9 - TYPE 2 DIABETES MELLITUS WITHOUT COMPLICATIONS
[2018-06-28] MEDS ORDERED: DEXTROSE 5%-WATER - 50 ML IVPB ONE ×2 (00:50→09:07)
[2018-06-28] MEDS ORDERED: PIPERACILLIN/TAZOBACTAM 3.375 GM VIAL IVPB ONE ×2 (00:50→09:07)
[2018-06-28] MEDS: PIPERACILLIN/TAZOB 3.375 GM 3.375 GM in DEXTROSE 5%-WATER - 50 ML IVPB SCH ×3 (01:12→14:06)
[2018-06-28] MEDS: INSULIN SLIDING SCALE (NOVOLOG) 1 VIAL SQ SCH ×3 (06:10→17:30)
[2018-06-28 07:43] LABS: BASO % 0.9 % (0-2.0); EOS % 2.3 % (0-4.5); HEMATOCRIT 43.3 % (35.4-49); HEMOGLOBIN 14.7 GM/dL (11.7-16.9); LYMPH % 24.6 % (8-40); MCH 28.3 pg (25.7-33.7); MCHC 33.9 g/dl (32.0-35.9); MEAN CELL VOLUME 83.6 fl (80-96); MEAN PLT VOLUME 9.1 fl (7.5-11.1); MONO % 7.6 % (3.8-10.2); NEUT % 64.6 % (42.8-82.8); PLATELET COUNT 336 K/MM3 (134-434); RBC 5.18 M/mm3 (4.00-5.60); RDW 14.2 % (11.9-15.9); WHITE BLOOD COUNT 9.3 K/mm3 (4.0-10.0)
[2018-06-28 08:17] LABS: ANION GAP 8 MMOL/L (8-16); BLOOD UREA NITROGEN 13 mg/dL (7-18); CALCIUM 9.1 mg/dL (8.5-10.1); CHLORIDE 100 mmol/L (98-107); CO2 27 mmol/L (21-32); CREATININE 0.9 mg/dL (0.55-1.3); GLUCOSE,RANDOM 114 mg/dL (74-106); MAGNESIUM 2.6 mg/dL (1.8-2.4); PHOSPHOROUS 3.6 mg/dL (2.5-4.9); POTASSIUM 4.4 mmol/L (3.5-5.1); SODIUM 134 mmol/L (136-145)
[2018-06-28] MEDS: HYDROCHLOROTHIAZIDE 25 MG TABLET (FP) PO SCH (09:51)
[2018-06-28] MEDS: LISINOPRIL 20 MG TABLET (FP) PO SCH (09:51)
[2018-06-28] MEDS: FLUCONAZOLE 400 MG/NS 200 ML IVPB SCH ×3 (09:53→17:38)
[2018-06-28 13:05] VITALS: BP 144/81; PULSE 90; TEMP 97.7
--- NOTE | 2018-06-28 13:41 | PN ---
Progress Note, Physician History of Present Illness: patient stable doing well no new issues - Current Medication List Current Medications: Active Medications Hydrochlorothiazide (Hctz -) 25 mg PO DAILY [facility] Last Admin: 06/28/18 09:51 Dose: 25 mg Fluconazole (Diflucan 400 Mg/Ns Premixed Ivpb -) 200 mls @ 200 mls/hr IVPB DAILY [facility] Last Admin: 06/28/18 09:53 Dose: 200 mls/hr Insulin Aspart (Novolog Vial Sliding Scale -) 1 vial SQ ACHS [facility]; Protocol Last Admin: 06/28/18 11:50 Dose: Not Given Lisinopril (Prinivil) 20 mg PO DAILY [facility] Last Admin: 06/28/18 09:51 Dose: 20 mg - Objective Vital Signs: Vital Signs Temperature 97.7 F 06/28/18 13:04 Pulse Rate 90 06/28/18 13:04 Respiratory Rate 18 06/28/18 13:04 Blood Pressure 144/81 06/28/18 13:04 O2 Sat by Pulse Oximetry (%) 96 06/24/18 21:00 Constitutional: Yes: No Distress, Calm, Obese Cardiovascular: Yes: Regular Rate and Rhythm Respiratory: Yes: Regular, CTA Bilaterally Gastrointestinal: Yes: Normal Bowel Sounds, Soft Musculoskeletal: Yes: WNL Extremities: Yes: WNL Neurological: Yes: Alert, Oriented Psychiatric: Yes: Alert, Oriented Labs: CBC, BMP 06/28/18 07:00 06/28/18 07:00 INR, PTT INR 1.15 (0.83-1.09) H 06/22/18 07:15 Assessment/Plan Problem List - Problems (1) Perforated appendicitis Code(s): K35.32 - ACUTE APPENDICITIS WITH PERF AND LOC PERITONITIS, W/O ABSCS (2) Abdominal pain in male Code(s): R10.9 - UNSPECIFIED ABDOMINAL PAIN (3) Obesity (BMI 35.0-39.9 without comorbidity) Code(s): E66.9 - OBESITY, UNSPECIFIED (4) Leukocytosis Code(s): D72.829 - ELEVATED WHITE BLOOD CELL COUNT, UNSPECIFIED Qualifiers: Leukocytosis type: bandemia Qualified Code(s): D72.825 - Bandemia 5 fungameia plan will change zosyn to oral antifungal await for ct official result rest as per the team
--- NOTE | 2018-06-28 16:42 | PN ---
Teaching Attending Note Name of Resident: Anne Marie Munoz ATTENDING PHYSICIAN STATEMENT I saw and evaluated the patient. I reviewed the resident's note and discussed the case with the resident. I agree with the resident's findings and plan as documented. OBJECTIVE: Last Vital Signs Temp Pulse Resp BP Pulse Ox 36.5 C 90 18 144/81 96 06/28/18 13:04 06/28/18 13:04 06/28/18 13:04 06/28/18 13:04 06/24/18 21:00 Gen: nad, obese Pulm: ctab w/o w/r/r CV: rrr w/o m/r/g Abd: +bs, s/nt/nd Ext: no c/c/e Mr Matias is a very pleasant 57 year old male who came in with appendicitis. He was evaluated by surgery and an abscess was noted so decided to treat conservatively with antibiotics. He was also evaluated by IR for possible drain but this was not needed. He was placed on zosyn and was to complete 5 days, however his blood grew yeast. Diflucan was added and he did well. He had a repeat CT scan and it was unchanged. He is safe for discharge home on augmentin and IV diflucan. Problem List - Problems (1) Perforated appendicitis Code(s): K35.32 - ACUTE APPENDICITIS WITH PERF AND LOC PERITONITIS, W/O ABSCS (2) HTN (hypertension) Code(s): I10 - ESSENTIAL (PRIMARY) HYPERTENSION (3) Diabetes Code(s): E11.9 - TYPE 2 DIABETES MELLITUS WITHOUT COMPLICATIONS
--- NOTE | 2018-06-28 17:05 | DS ---
Physical Exam: SUBJECTIVE: Patient seen and examined; afebrile; no abdominal pain; wbc decreased OBJECTIVE: Vital Signs Period Temp Pulse Resp BP Sys/Collazo Pulse Ox Last 24 Hr 97.4 F-97.7 F 74-90 18-20 113-144/63-81 PHYSICAL EXAM GENERAL: The patient is awake, alert, and fully oriented, in no acute distress. NECK: Trachea midline, full range of motion, supple. LUNGS: Breath sounds equal, clear to auscultation bilaterally, no wheezes, no crackles, no accessory muscle use. HEART: Regular rate and rhythm, S1, S2 without murmur, rub or gallop. ABDOMEN:obese; non tender; bs+ EXTREMITIES: 2+ pulses, warm, well-perfused, no edema. NEUROLOGICAL: Cranial nerves II through XII grossly intact. Normal speech, gait not observed. PSYCH: Normal mood, normal affect. SKIN: Warm, dry, normal turgor, no rashes or lesions noted. LABS Laboratory Results - last 24 hr 06/27/18 06/27/18 06/28/18 17:16 22:04 05:33 WBC RBC Hgb Hct MCV MCH MCHC RDW Plt Count MPV Absolute Neuts (auto) Neutrophils % Lymphocytes % Monocytes % Eosinophils % Basophils % Nucleated RBC % Sodium Potassium Chloride Carbon Dioxide Anion Gap BUN Creatinine Creat Clearance w eGFR POC Glucometer 115 114 103 Random Glucose Calcium Phosphorus Magnesium 06/28/18 06/28/18 06/28/18 07:00 07:00 11:43 WBC 9.3 RBC 5.18 Hgb 14.7 Hct 43.3 MCV 83.6 MCH 28.3 MCHC 33.9 RDW 14.2 Plt Count 336 MPV 9.1 Absolute Neuts (auto) 6.0 Neutrophils % 64.6 Lymphocytes % 24.6 D Monocytes % 7.6 Eosinophils % 2.3 D Basophils % 0.9 Nucleated RBC % 0 Sodium 134 L Potassium 4.4 Chloride 100 Carbon Dioxide 27 Anion Gap 8 BUN 13 Creatinine 0.9 Creat Clearance w eGFR 86.98 POC Glucometer 114 Random Glucose 114 H Calcium 9.1 Phosphorus 3.6 Magnesium 2.6 H 06/21/18 21:00 Blood - Peripheral Venous Yeast/Fungus Identification - Preliminary Pending Organism 06/24/18 07:16 Blood - Peripheral Venous Blood Culture - Preliminary NO GROWTH OBTAINED AFTER 72 HOURS, INCUBATION TO CONTINUE FOR 2 DAYS. 06/24/18 07:16 Blood - Peripheral Venous Blood Culture - Preliminary NO GROWTH OBTAINED AFTER 72 HOURS, INCUBATION TO CONTINUE FOR 2 DAYS. 06/21/18 21:00 Blood - Peripheral Venous Blood Culture - Final NO GROWTH AFTER 5 DAYS INCUBATION 06/21/18 21:00 Blood - Peripheral Venous Blood Culture - Final Yeast Like Organism Yeast Like Organism#2 06/21/18 19:00 Urine - Urine Clean Catch Urine Culture - Final NO GROWTH OBTAINED HOSPITAL COURSE: Date of Admission:06/22/18 Date of Discharge: 06/28/18 ASSESSMENT/PLAN: This is a 57 year old obese male with a history of HTN, NIDDM, who presented with two weeks of abdominal pain; found to have perforated appendicitis with abscess. Blood cultures as above positive for yeast. Patient was maintained on IV zosyn and IV fluconazole. Repeat CT abdomen and pelvis showed same inflammation; with less fluid; regional lymph node; Pateitn will need repeat imaging and will follow up with surgery as outpatient. He will continue antibitovic, augmentin and IV fluconazole for another 8 days at home. Minutes to complete discharge: 35 Discharge Summary Reason For Visit: ABD PAIN RUPTURE OF APPENDIX Current Active Problems Abdominal pain (Acute) Abdominal pain in male (Acute) Diabetes (Acute) HTN (hypertension) (Acute) Leukocytosis (Acute) Obesity (BMI 35.0-39.9 without comorbidity) (Acute) Perforated appendicitis (Acute) Condition: Good - Instructions Diet, Activity, Other Instructions: Mr. Matias, you were in the hospital for ruptured appendicitis. You will need IV antibiotics as prescribed for 8 more days. You need to follow up with surgery with in one week to discuss further plans for surgery or drain of affected area. Please follow up with your primary with in one week. IF you experience any worsening of symptoms including fever, chills,, severe abdominal pain , nausea, vomiting, please return to the emergency room. Disposition: HOME - Home Medications Comprehensive Discharge Medication List: Ambulatory Orders Dulaglutide [Trulicity] 1.5 mg SQ WEEKLY 11/09/17 Lisinopril/Hydrochlorothiazide [Lisinopril-Hctz 20-25 mg Tab] 1 each PO DAILY Amox-Tr/K Cl [Augmentin 875-125mg Tablet -] 1 tab PO BID@0800,1730 5 Days #10 tablet 06/28/18 Fluconazole in NaCl,Iso-Osm [Fluconazole-NaCl 400 mg/200 ml] 400 mg IV DAILY 8 Days #8 piggyback 06/28/18 Hydrochlorothiazide 25 mg PO DAILY 06/28/18 This patient is new to me today: Yes Date on this admission: 06/28/18 Emergency Visit: Yes ED Registration Date: 06/22/18 Care time: The patient presented to the Emergency Department on the above date and was hospitalized for further evaluation of their emergent condition. Critical Care patient: No - Discharge Referral Referred to [facility] Med P.C.: No
[2018-06-28] MEDS ORDERED: AMOX TR/POT CLAV 875MG/125MG TABLETS (FP) PO SCH (17:30)
== END 2018-06-28 20:05 | disposition home or self-care (01) | DRG 248 ==
LOC: JER 17:48 → JERBED 06-22 02:51 → J6S 06-22 05:06
PROVIDERS: ADMIT Internal Medicine; ATTEND Internal Medicine
PROC: 02HV33Z Insertion of Infusion Device into Superior Vena Cava, Percutaneous Approach (ICD-10-PCS; principal; 2018-06-28)
PROC: B518ZZA Fluoroscopy of Superior Vena Cava, Guidance (ICD-10-PCS; 2018-06-28)
DX: K35.33 Acute appendicitis with perforation, localized peritonitis, and gangrene, with abscess (principal); I10 Essential (primary) hypertension; E78.5 Hyperlipidemia, unspecified; E11.9 Type 2 diabetes mellitus without complications; E66.01 Morbid (severe) obesity due to excess calories; Z68.41 Body mass index [BMI] 40.0-44.9, adult; B49 Unspecified mycosis; K44.9 Diaphragmatic hernia without obstruction or gangrene; D72.825 Bandemia
CPT/HCPCS: 36415; 36569; 71046-TC-FY; 74177-TC; 77001-TC-FY; 80048; 80053; 81003; 82962; 83605; 83735; 84100; 85025; 85610; 85730; 86850; 86900; 86901; 87040; 87086; 87106; 93005; 93010; 99285-25; C1751; J0131; J7030; Q9967

== ENCOUNTER 2018-07-06 08:40 | Emergency (ER) | payer OTHER ==
[2018-07-06 08:45] VITALS: BMI 40.3
--- NOTE | 2018-07-06 09:50 | PDOC ---
History of Present Illness - General Chief Complaint: Edema Stated Complaint: RT ARM SWOLLEN - History of Present Illness Initial Comments: Kingsley Matias is a 57yo man with a PMH of HTN, NIDDM, and recent admission for perforated appendicitis s/p RUE PICC line (placed 06/29) who presents per recommendation of his PMD for RUE pain and swelling. He says that he has had the pain, swelling and swelling since the PICC was placed. He was seen by a home nurse once for his antibiotic care, but she did not comment on it. Over the past week, he also noticed redness and warmth, but these have since resolved. He states that the redness, warmth, swelling, and pain were all present when he saw his PMD yesterday. He was told to go to the ED. However he was unable to come yesterday. He tried putting an ice pack on his arm, and he states that it looks significantly better today. It is no longer red or warm, but he notes that the upper arm feels firm. Mr Matias denies any fevers, chills, SOB, chest pain, pleuritic pain. He no longer has any abdominal pain, denies constipation, diarrhea, nausea or vomiting , and has been tolerating a regular diet without difficulty. Other than the arm pain, he has been feeling well. He has been taking the IV antibiotics as prescribed and finished the course this morning. Past History - Past Medical History Allergies/Adverse Reactions: Allergies Allergy/AdvReac Type Severity Reaction Status Date / Time No Known Allergies Allergy Verified 07/06/18 08:42 Home Medications: Ambulatory Orders Dulaglutide [Trulicity] 1.5 mg SQ WEEKLY 11/09/17 Lisinopril/Hydrochlorothiazide [Lisinopril-Hctz 20-25 mg Tab] 1 each PO DAILY Amox-Tr/K Cl [Augmentin 875-125mg Tablet -] 1 tab PO BID@0800,1730 5 Days #10 tablet 06/28/18 Fluconazole in NaCl,Iso-Osm [Fluconazole-NaCl 400 mg/200 ml] 400 mg IV DAILY 8 Days #8 piggyback 06/28/18 Hydrochlorothiazide 25 mg PO DAILY 06/28/18 COPD: No HTN: Yes - Immunization History Immunization Up to Date: Yes - Suicide/Smoking/Psychosocial Hx Smoking History: Never smoked Have you smoked in the past 12 months: No Information on smoking cessation initiated: No Hx Alcohol Use: No Drug/Substance Use Hx: No Substance Use Type: None Hx Substance Use Treatment: No Review of Systems - Review of Systems Comments:: General: No fevers, no chills, no weight or appetite change, no malaise HEENT: No changes in vision, no changes in hearing, no congestion, no sore throat CV: No chest pain, no palpitations, no LE edema Pulm: No SOB, no cough, no wheezing GI: No nausea or vomiting, no change in bowel habits, no melena : No frequency, no urgency, no dysuria Musc: No back pain, no joint swelling, no recent injury - See HPI Skin: No rash, no lesions, no erythema Endo: No excessive thirst, no heat/cold intolerance Heme: No unusual bruising or bleeding, no swollen glands Neuro: No syncope, no numbness/tingling, no focal weakness Vasc: No claudication Psych: No recent change in mood, no SI or HI *Physical Exam - Vital Signs Last Vital Signs Temp Pulse Resp BP Pulse Ox 98.2 F 76 16 169/93 99 07/06/18 08:42 07/06/18 08:42 07/06/18 08:42 07/06/18 08:42 07/06/18 08:42 - Physical Exam Comments: General: Comfortable, no acute distress HEENT: PERRL, EOMI, MMM, voice normal, normal neck ROM, no LAD Cards: RRR, no murmur appreciated Pulm: Comfortable on room air, clear to auscultation bilaterally Abd: Soft, nontender, nondistended Ext: Atraumatic. RUE with PICC in place. Right upper arm with firm, ropey areas , TTP, proximal to PICC. No erythema, no warmth, no edema. PICC site c/d/i with clean dressing in place, no drainage noted. ROM intact. Vasc: Extremities WWP. Palpable radial pulses bilaterally Skin: Normal color, no rashes or lesions Neuro: A&Ox3, CN grossly intact, normal speech, motor/sensory grossly intact and symmetric Psych: Mood appropriate to situation ED Treatment Course - RADIOLOGY Radiology Studies Ordered: Category Date Time Status DUPLEX VASCUL US-1 ARM [US] Stat Ultrasound 07/06/18 09:40 Ordered Medical Decision Making - Medical Decision Making 07/06/18 09:43 Kingsley Matias is a 57yo man with a PMH of HTN, NIDDM, and recent admission for perforated appendicitis s/p RUE PICC line placement to complete his course of antibiotics (last dose today) who presents with right upper arm pain and firmness to palpation. - Suspect superficial thrombophlebitis, but need to r/o DVT - No erythema, warmth suggesting cellulitis - No SOB, tachycardia, pleuritic pain to suggest PE - Pt declines pain medication at this time - RUE duplex ordered for evaluation 07/06/18 12:20 - Duplex completed. No DVT seen. Superficial thrombus in distal basilic vein. - Will d/c home with PMD, ID, surgery follow up. 07/06/18 13:37 - Spoke with Dr Wiley. As abx completed, no longer needs IV access. PICC removed in ED prior to discharge. Discussed with Dr Stewart. Christine Kebede PGY1 *DC/Admit/Observation/Transfer Diagnosis at time of Disposition: Superficial thrombophlebitis of arm Qualifiers: Laterality: right Qualified Code(s): I80.8 - Phlebitis and thrombophlebitis of other sites - Discharge Dispostion Disposition: HOME Condition at time of disposition: Stable Decision to Admit order: No - Referrals Referrals: Max Thrasher MD [Staff Physician] - Britni Wiley MD [Staff Physician] - - Patient Instructions Printed Discharge Instructions: DI for Superficial Thrombophlebitis Additional Instructions: Discharge Instructions: You were seen in the emergency room for pain and swelling to the right upper arm. You were found to have a blood clot in one of the surface veins in your arm. Although this is uncomfortable, it is not dangerous. Home Care and Follow Up: - Use warm compresses as needed for discomfort - Keep your arm elevated as possible to reduce swelling - You may use medications such as 650-1000mg acetaminophen (Tylenol) or 600mg ibuprofen (Advil, Motrin) as needed every 6-8 hours for pain. - Follow up with Dr Wiley with the next 2-3 days to discuss removal of your PICC line - Make an appointment to follow up with Dr Thrasher as recommended for follow up of your hospitalization - Seek immediate medical care if you have worsening symptoms, develop shortness of breath, chest pain or pain with deep breaths, racing heart, or any other medical emergency. - Post Discharge Activity
--- NOTE | 2018-07-06 09:51 | PDOC ---
Attending Attestation - HPI HPI: 07/06/18 13:13 Patient is a 57 year old male with a significant past medical history of HTN, NIDDM, and recent admission for perforated appendicitis s/p RUE PICC line ( placed 06/29) who presents to the ED with complaints of right arm pain that began earlier this week. Patient reports right upper extremity pain began as well as increased swelling since his PICC line was placed. He reports noticing increased warmth and redness to his sit went, prompting him to contact his PCP who advised he come into the ED for further evaluation. Denies chest pain, sob. Denies nausea, vomiting. Denies fevers, chills. Denies diarrhea, constipation. Denies dysuria, hematuria. Denies contact with sick individuals, out of state travelling. Denies any other symptoms. Allergies: none Social history: No smoking. No alcohol. No illicit drugs. Surgical history: None PMD: Dr. Ocampo - Physicial Exam PE: 07/06/18 13:13 GENERAL: The patient is in no acute distress. ENT: Ears normal, nares patent, oropharynx clear without exudates. Moist mucous membranes. NECK: Normal range of motion, supple, no nuchal rigidity LUNGS: Breath sounds equal, clear to auscultation bilaterally. No wheezes, and no crackles. HEART: Regular rate and rhythm, normal S1 and S2 without murmur, rub or gallop. ABDOMEN: Soft, nontender, normoactive bowel sounds. No guarding, no rebound. No masses palpable. EXTREMITIES: +Right upper extremity picc line in place. +Area distal to insertion site is firm and tender to palpation. +hand is warm, not swollen. Brisk capillary refill. No erythema Normal range of motion, no edema. NEUROLOGICAL: Cranial nerves II through XII grossly intact. Normal speech. No focal neurological deficits. SKIN: Warm, Dry, normal turgor, no rashes or lesions noted. <Jovany Alvares - Last Filed: 07/06/18 13:13> - Resident Resident Name: Christine Kebede - ED Attending Attestation I have performed the following: I have examined & evaluated the patient, The case was reviewed & discussed with the resident, I agree w/resident's findings & plan, Exceptions are as noted - Physicial Exam PE: - Medical Decision Making 57 yo M s/p PICC for lobsterman abx s/p perforated appendicitis p/w arm swelling US demonstrates thrombosis of superficial vessels, no dvt Consistent with superficial thrombophlebitis Call placed to Dr Wiley who agrees with d/c line given pt has completed his abx course Will recommend warm compresses Monitor for cellulitis F/u PMD <Alessia Stewart - Last Filed: 07/09/18 11:59>
[2018-07-06 13:13] VITALS: BP 163/97; PULSE 82; TEMP 97.8
== END 2018-07-06 13:51 | disposition home or self-care (01) ==
LOC: JER 08:40
DX: I80.8 Phlebitis and thrombophlebitis of other sites (principal); I10 Essential (primary) hypertension; E11.9 Type 2 diabetes mellitus without complications
CPT/HCPCS: 93971; 99281-25

== ENCOUNTER 2022-08-05 04:22 | Emergency (ER) | payer OTHER ==
[2022-08-05 04:30] VITALS: BMI 42.6
[2022-08-05 05:54] LABS: BASO % 0.5 % (0-2.0); HEMATOCRIT 46.7 % (35.4-49); MCH 28.2 pg (25.7-33.7); MCHC 34.4 g/dl (32.0-35.9); MEAN CELL VOLUME 82.1 fl (80-96); MEAN PLT VOLUME 10.5 fl (7.5-11.1); MONO % 6.4 % (3.8-10.2); NEUT % 66.1 % (42.8-82.8); PLATELET COUNT 223 10^3/uL (134-434); RBC 5.68 M/mm3 (4.00-5.60); RDW 13.6 % (11.9-15.9); WHITE BLOOD COUNT 12.3 K/mm3 (4.0-10.0)
[2022-08-05 06:03] LABS: VENOUS BASE EXCESS 0.9 mmol/L (-2-2); VENOUS O2 SATURATION 32.9 % (70-80); VENOUS PCO2 56.7 mmHg (38-52); VENOUS PH 7.326 (7.310-7.410)
[2022-08-05 06:44] VITALS: RESP 18
[2022-08-05] MEDS ORDERED: NITROGLYCERIN 2% OINTMENT - 1GM PACKET TD ONE ×4 (06:54→07:55)
[2022-08-05 06:57] LABS: POTASSIUM 4.5 mmol/L (3.5-5.1)
[2022-08-05 06:59] LABS: ALBUMIN 3.6 g/dl (3.4-5.0)
[2022-08-05 07:00] LABS: BLOOD UREA NITROGEN 21.7 mg/dL (7-18); MAGNESIUM 1.7 mg/dL (1.8-2.4)
[2022-08-05 07:03] LABS: CREATININE 1.1 mg/dL (0.55-1.3)
[2022-08-05] MEDS ORDERED: MAGNESIUM SULF 50% (8.12 MEQ/2 ML-1 GM VIAL) IVPB ONE (07:04)
[2022-08-05 07:05] LABS: BILIRUBIN,TOTAL 1.2 mg/dL (0.2-1)
[2022-08-05] MEDS ORDERED: MAGNESIUM SULFATE IN WATER 2 GM/50 ML IVPB IVPB ONE (07:18)
[2022-08-05 07:28] LABS: INR 1.03 (0.83-1.09)
[2022-08-05 07:31] LABS: ACTIVATED PTT 36.8 SECONDS (25.2-36.5)
[2022-08-05] MEDS ORDERED: SODIUM CHLORIDE 500 ML IV STA (08:27)
[2022-08-05] MEDS ORDERED: ASPIRIN 325 MG ENTERIC COATED TABLET (FP) PO ONE (08:29)
[2022-08-05] MEDS ORDERED: LISINOPRIL 20 MG TABLET ONE (08:51)
[2022-08-05] MEDS ORDERED: ASPIRIN 325 MG ENTERIC COATED TABLET (FP) ONE (08:51)
[2022-08-05] MEDS: LISINOPRIL 20 MG TABLET PO ONE ×2 (09:25→10:38)
[2022-08-05] MEDS ORDERED: HEPARIN NA (PORCINE) 5,000 UNITS/ML 1ML VIAL IVPUSH PRN ×2 (09:39)
[2022-08-05] MEDS ORDERED: HEPARIN NA (PORCINE) 5,000 UNITS/ML 1ML VIAL IVPUSH ONE (09:39)
[2022-08-05] MEDS ORDERED: HEPARIN SOD,PORK IN 0.45% NACL 25,000 UNITS/500 ML INFUS.BAG IVPB SCH (09:45)
[2022-08-05 12:20] VITALS: BP 120/67; PULSE 71; TEMP 97.6
== END 2022-08-05 12:22 | disposition short-term general hospital (02) ==
LOC: JER 04:22
PROC: 3E033GC Introduction of Other Therapeutic Substance into Peripheral Vein, Percutaneous Approach (ICD-10-PCS; principal; 2022-08-05)
PROC: 3E0337Z Introduction of Electrolytic and Water Balance Substance into Peripheral Vein, Percutaneous Approach (ICD-10-PCS; 2022-08-05)
DX: R07.2 Precordial pain (principal); I21.4 Non-ST elevation (NSTEMI) myocardial infarction; I16.1 Hypertensive emergency; Z20.822 Contact with and (suspected) exposure to COVID-19
CPT/HCPCS: 0241U-QW; 36415; 71045-TC-FY; 71275-TC; 74174-TC; 80053; 82803; 82962; 83605; 83690; 83735; 83880; 84484; 85025; 85610; 85730; 86850; 86900; 86901; 93005; 93010; 99285-25; Q9967